=== PATIENT | male | born 1950 | race Caucasian/White ===

== ENCOUNTER 2018-02-06 11:36 | Inpatient (IN) | payer OTHER ==
[~2018-02-06] VITALS: Ht 180.3 cm; Wt 84.9 kg
[2018-02-06 11:58] VITALS: BP 96/53
[2018-02-06] MEDS ORDERED: METF500T5 PO (12:31)
[2018-02-06] MEDS ORDERED: AMLO10TA4 PO (12:32)
[2018-02-06] MEDS ORDERED: ATOR-2 PO (12:33)
[2018-02-06] MEDS ORDERED: LISI1TAB7 PO (12:34)
[2018-02-06] MEDS ORDERED: CLON-275 PO (12:34)
[2018-02-06] MEDS ORDERED: PIOG15TA22 PO (12:38)
[2018-02-06 12:50] LABS: ALBUMIN 1.6 g/dL (3.4-5.0); ANION GAP 9 mmol/L (5-15); CALCIUM 9.3 mg/dL (8.5-10.1); CHLORIDE 98 mmol/L (98-107); CREATININE 1.85 mg/dL (0.7-1.3)
[2018-02-06 12:57] LABS: ALANINE AMINOTRANSFERASE 20 U/L (12-78); ALKALINE PHOSPHATASE 86 U/L (45-117); BILIRUBIN,TOTAL 0.5 mg/dL (0.2-1.0)
[2018-02-06] MEDS ORDERED: PLEASE ENTER ALLERGIES MC SCH (13:00)
[2018-02-06] MEDS ORDERED: ONDANSETRON 2MG/ML, 2ML IVPush PRN (13:00)
[2018-02-06 13:18] LABS: MEAN CORPUSCULAR HEMOGLOBIN 26.8 pg (27.5-34.5); MEAN CORPUSCULAR HGB CONC 32.6 g/dL (33.2-36.2); MEAN CORPUSCULAR VOLUME 82.2 fL (81-97); MEAN PLATELET VOLUME 6.2 fL (7.4-10.4); PLATELET COUNT 665 x10^3/uL (130-400); RED BLOOD COUNT 2.44 x10^6/uL (4.38-5.82)
[2018-02-06] MEDS: NS + 20MEQ KCL 1,000 ML IV SCH ×3 (13:50→23:00)
[2018-02-06 13:52] LABS: BASOPHILS # (AUTO) 0.02 x10^3/uL (0-0.1); BASOPHILS % (AUTO) 0 % (0-1); EOSINOPHILS # (AUTO) 0.01 x10^3/uL (0-0.4); EOSINOPHILS % (AUTO) 0 % (1-7); LYMPHOCYTES # (AUTO) 1.05 x10^3/uL (1-3.4); LYMPHOCYTES % (AUTO) 13 % (22-44); MD MORPH REVIEW ONLY; MONOCYTES # (AUTO) 0.41 x10^3/uL (0.2-0.8); MONOCYTES % (AUTO) 5 % (2-9); NEUTROPHILS # (AUTO) 6.65 x10^3/uL (1.8-6.8); NEUTROPHILS % (AUTO) 82 % (42-75)
[2018-02-06 13:54] LABS: ANISOCYTOSIS 1+; HYPOCHROMIA 1+
[2018-02-06 13:55] LABS: POLYCHROMASIA 1+
[2018-02-06 13:56] LABS: <PLATELET ESTIMATE> INCREASED; <PLT MORPHOLOGY> NORMAL PLT MORPH
[2018-02-06] MEDS ORDERED: hydrALAzine 20 MG/ML, 1ML IVPush PRN (14:00)
[2018-02-06] MEDS ORDERED: ZOLPIDEM 5MG TABLET PO PRN (14:00)
[2018-02-06 14:04] VITALS: BP 92/54
[2018-02-06 14:35] LABS: HEMOGLOBIN A1C 6.8 % (4.2-6.3)
[2018-02-06 14:44] LABS: % IRON SATURATION 13 % (20-55); IRON LEVEL 16 mcg/dL (65-175); TOTAL IRON BINDING CAPACITY 123 mcg/dL (250-450)
[2018-02-06 14:52] LABS: MEAN CORPUSCULAR HEMOGLOBIN 26.2 pg (27.5-34.5); MEAN CORPUSCULAR HGB CONC 32.3 g/dL (33.2-36.2); MEAN CORPUSCULAR VOLUME 80.9 fL (81-97); MEAN PLATELET VOLUME 5.8 fL (7.4-10.4); PLATELET COUNT 566 x10^3/uL (130-400); RED BLOOD COUNT 2.25 x10^6/uL (4.38-5.82); RED CELL DISTRIBUTION WIDTH 18.6 % (9.4-14.8)
[2018-02-06 14:53] LABS: HEMOGRAM NOTE RECHECKED
[2018-02-06 15:00] LABS: ANISOCYTOSIS 1+; BASOPHILS # (AUTO) 0.02 x10^3/uL (0-0.1); BASOPHILS % (AUTO) 0 % (0-1); EOSINOPHILS # (AUTO) 0.02 x10^3/uL (0-0.4); EOSINOPHILS % (AUTO) 0 % (1-7); LYMPHOCYTES # (AUTO) 0.82 x10^3/uL (1-3.4); LYMPHOCYTES % (AUTO) 13 % (22-44); MD MORPH REVIEW ONLY; MONOCYTES # (AUTO) 0.39 x10^3/uL (0.2-0.8); MONOCYTES % (AUTO) 6 % (2-9); NEUTROPHILS # (AUTO) 5.17 x10^3/uL (1.8-6.8); NEUTROPHILS % (AUTO) 81 % (42-75)
[2018-02-06 15:01] LABS: <PLATELET ESTIMATE> INCREASED; <PLT MORPHOLOGY> NORMAL PLT MORPH; HYPOCHROMIA 1+; POLYCHROMASIA 1+
[2018-02-06] MEDS: INSULIN LISPRO 100 UNITS/ML, PEN SQ-INSULIN SCH ×2 (16:00→21:00)
[2018-02-06 18:51] VITALS: BP 103/55
[2018-02-07] VITALS (8 sets, daily range): BP systolic 102–143; BP diastolic 50–73
[2018-02-07] MEDS: NS + 20MEQ KCL 1,000 ML IV SCH ×4 (01:06→18:01)
[2018-02-07 05:09] LABS: CALCIUM 8.5 mg/dL (8.5-10.1)
[2018-02-07 05:13] LABS: MICROSCOPIC AUTO
[2018-02-07 05:15] LABS: ALANINE AMINOTRANSFERASE 16 U/L (12-78); ALBUMIN 1.5 g/dL (3.4-5.0); ANION GAP 7 mmol/L (5-15); CALCIUM 7.9 mg/dL (8.5-10.1); CHLORIDE 102 mmol/L (98-107)
[2018-02-07 05:25] LABS: ALKALINE PHOSPHATASE 75 U/L (45-117); BILIRUBIN,TOTAL 0.6 mg/dL (0.2-1.0); TOTAL PROTEIN 6.2 g/dL (6.4-8.2)
[2018-02-07 06:56] LABS: MEAN CORPUSCULAR HEMOGLOBIN 26.3 pg (27.5-34.5); MEAN CORPUSCULAR HGB CONC 32.3 g/dL (33.2-36.2); MEAN CORPUSCULAR VOLUME 81.6 fL (81-97); MEAN PLATELET VOLUME 5.8 fL (7.4-10.4); PLATELET COUNT 632 x10^3/uL (130-400); RED BLOOD COUNT 2.53 x10^6/uL (4.38-5.82); RED CELL DISTRIBUTION WIDTH 19.1 % (9.4-14.8)
[2018-02-07] MEDS: INSULIN LISPRO 100 UNITS/ML, PEN SQ-INSULIN SCH ×4 (07:00→22:22)
[2018-02-07 07:53] LABS: MD YES
[2018-02-07 07:54] LABS: <PLATELET ESTIMATE> INCREASED; <PLT MORPHOLOGY> NORMAL PLT MORPH; ANISOCYTOSIS 1+; LYMPH#(MANUAL) 1.42 x10^3/uL (1-3.4); LYMPHS% (MANUAL) 18 % (22-44); MONOS#(MANUAL) 0.16 x10^3/uL (0.3-2.7); MONOS% (MANUAL) 2 % (2-9); ROULEAUX 1+; SEG#(MANUAL) 6.32 x10^3/uL (1.8-6.8); SEGS% (MANUAL) 80 % (42-75)
[2018-02-07 21:58] LABS: MEAN CORPUSCULAR HEMOGLOBIN 27.2 pg (27.5-34.5); MEAN CORPUSCULAR HGB CONC 32.9 g/dL (33.2-36.2); MEAN CORPUSCULAR VOLUME 82.8 fL (81-97); MEAN PLATELET VOLUME 5.9 fL (7.4-10.4); PLATELET COUNT 514 x10^3/uL (130-400); RED BLOOD COUNT 2.35 x10^6/uL (4.38-5.82); RED CELL DISTRIBUTION WIDTH 18.5 % (9.4-14.8)
[2018-02-07] MEDS ORDERED: DIPHENHYDRAMINE 50 MG/ML, 1ML IVPush PRN (22:00)
[2018-02-07 22:50] LABS: BASOPHILS # (AUTO) 0.02 x10^3/uL (0-0.1); BASOPHILS % (AUTO) 0 % (0-1); EOSINOPHILS # (AUTO) 0.01 x10^3/uL (0-0.4); EOSINOPHILS % (AUTO) 0 % (1-7); LYMPHOCYTES # (AUTO) 0.72 x10^3/uL (1-3.4); LYMPHOCYTES % (AUTO) 10 % (22-44); MD MORPH REVIEW ONLY; MONOCYTES # (AUTO) 0.53 x10^3/uL (0.2-0.8); MONOCYTES % (AUTO) 7 % (2-9); NEUTROPHILS # (AUTO) 6.12 x10^3/uL (1.8-6.8); NEUTROPHILS % (AUTO) 83 % (42-75)
[2018-02-07 22:52] LABS: ANISOCYTOSIS 1+; ROULEAUX 1+
[2018-02-07 22:53] LABS: <PLATELET ESTIMATE> INCREASED; <PLT MORPHOLOGY> NORMAL PLT MORPH
[2018-02-08] VITALS (14 sets, daily range): BP systolic 104–134; BP diastolic 49–72
[2018-02-08] MEDS: INSULIN LISPRO 100 UNITS/ML, PEN SQ-INSULIN SCH ×4 (08:17→20:29)
[2018-02-08] MEDS: NS + 20MEQ KCL 1,000 ML IV SCH ×2 (09:16→22:50)
[2018-02-08] MEDS ORDERED: DIAZEPAM INTENSOL 5 MG/ML PO PRN (11:30)
[2018-02-08] MEDS ORDERED: DIAZEPAM 5 MG TABLET ONE ×2 (11:48→20:14)
[2018-02-08] MEDS: DIAZEPAM 10 MG TABLET PO PRN (20:16)
[2018-02-09] VITALS (9 sets, daily range): BP systolic 111–145; BP diastolic 56–72
[2018-02-09 04:29] LABS: BASOPHILS # (AUTO) 0.03 x10^3/uL (0-0.1); BASOPHILS % (AUTO) 0 % (0-1); EOSINOPHILS # (AUTO) 0.03 x10^3/uL (0-0.4); EOSINOPHILS % (AUTO) 0 % (1-7); LYMPHOCYTES # (AUTO) 1.22 x10^3/uL (1-3.4); LYMPHOCYTES % (AUTO) 16 % (22-44); MD NO; MEAN CORPUSCULAR HEMOGLOBIN 27.6 pg (27.5-34.5); MEAN CORPUSCULAR HGB CONC 33.2 g/dL (33.2-36.2); MEAN CORPUSCULAR VOLUME 83.2 fL (81-97); MEAN PLATELET VOLUME 5.8 fL (7.4-10.4); MONOCYTES # (AUTO) 0.59 x10^3/uL (0.2-0.8); MONOCYTES % (AUTO) 8 % (2-9); NEUTROPHILS # (AUTO) 5.68 x10^3/uL (1.8-6.8); NEUTROPHILS % (AUTO) 75 % (42-75); PLATELET COUNT 423 x10^3/uL (130-400); RED CELL DISTRIBUTION WIDTH 18.4 % (9.4-14.8)
[2018-02-09 04:37] LABS: ALBUMIN 1.6 g/dL (3.4-5.0); ANION GAP 8 mmol/L (5-15); CALCIUM 8.1 mg/dL (8.5-10.1); CHLORIDE 104 mmol/L (98-107)
[2018-02-09 04:40] LABS: ALANINE AMINOTRANSFERASE 19 U/L (12-78); ALKALINE PHOSPHATASE 95 U/L (45-117); BILIRUBIN,TOTAL 0.9 mg/dL (0.2-1.0); CREATININE 1.24 mg/dL (0.7-1.3); TOTAL PROTEIN 6.5 g/dL (6.4-8.2)
[2018-02-09] MEDS: INSULIN LISPRO 100 UNITS/ML, PEN SQ-INSULIN SCH ×4 (07:00→20:48)
[2018-02-09] MEDS ORDERED: DIPHENHYDRAMINE 25 MG CAPSULE PO ONE (13:00)
[2018-02-09] MEDS ORDERED: ACETAMINOPHEN 325 MG TABLET PO ONE (13:00)
[2018-02-09] MEDS ORDERED: PROMETHAZINE 25 MG/ML, 1ML IM PRN (18:30)
[2018-02-09] MEDS: PANTOPROZOLE 40MG TABLET PO SCH (18:42)
[2018-02-09] MEDS: ALUMINUM/MAG/SIMETHICONE 30 ML UDC PO PRN (18:42)
[2018-02-09] MEDS: NS + 20MEQ KCL 1,000 ML IV SCH (22:49)
[2018-02-10] VITALS (8 sets, daily range): BP systolic 115–148; BP diastolic 58–73
[2018-02-10] MEDS ORDERED: DIAZEPAM 5 MG TABLET ONE (01:35)
[2018-02-10] MEDS: DIAZEPAM 10 MG TABLET PO PRN (01:36)
[2018-02-10] MEDS: ALUMINUM/MAG/SIMETHICONE 30 ML UDC PO PRN (02:32)
[2018-02-10] MEDS: NS + 20MEQ KCL 1,000 ML IV SCH ×2 (03:58→23:26)
[2018-02-10] MEDS: PANTOPROZOLE 40MG TABLET PO SCH ×3 (06:39→17:19)
[2018-02-10] MEDS: INSULIN LISPRO 100 UNITS/ML, PEN SQ-INSULIN SCH ×4 (07:00→23:26)
[2018-02-10] MEDS ORDERED: FLUMAZENIL 0.1 MG/1 ML, 5ML ONE (08:06)
[2018-02-10] MEDS ORDERED: NALOXONE 1 MG/ML, 2ML ONE (08:06)
[2018-02-10] MEDS ORDERED: MIDAZOLAM 1 MG/ML, 5ML ONE (08:06)
[2018-02-10] MEDS ORDERED: FENTANYL PF 100 MCG/2ML ONE (08:06)
[2018-02-10] MEDS ORDERED: LIDOCAINE 2%, 20ML ONE (08:11)
[2018-02-10 14:52] LABS: MEAN CORPUSCULAR HEMOGLOBIN 27.5 pg (27.5-34.5); MEAN CORPUSCULAR VOLUME 83.3 fL (81-97); MEAN PLATELET VOLUME 5.8 fL (7.4-10.4); PLATELET COUNT 365 x10^3/uL (130-400); RED BLOOD COUNT 3.79 x10^6/uL (4.38-5.82); RED CELL DISTRIBUTION WIDTH 18.6 % (9.4-14.8)
[2018-02-10 14:53] LABS: BASOPHILS # (AUTO) 0.01 x10^3/uL (0-0.1); BASOPHILS % (AUTO) 0 % (0-1); EOSINOPHILS # (AUTO) 0.06 x10^3/uL (0-0.4); EOSINOPHILS % (AUTO) 1 % (1-7); LYMPHOCYTES # (AUTO) 0.83 x10^3/uL (1-3.4); LYMPHOCYTES % (AUTO) 11 % (22-44); MD NO; MONOCYTES # (AUTO) 0.56 x10^3/uL (0.2-0.8); MONOCYTES % (AUTO) 8 % (2-9); NEUTROPHILS # (AUTO) 5.79 x10^3/uL (1.8-6.8); NEUTROPHILS % (AUTO) 80 % (42-75)
[2018-02-10] MEDS: ACETAMINOPHEN 325 MG TABLET PO PRN (19:18)
[2018-02-10] MEDS: DIAZEPAM 5 MG TABLET PO PRN (23:14)
[2018-02-11 01:18] VITALS: BP 127/62
[2018-02-11 07:58] VITALS: BP 126/62
[2018-02-11] MEDS: INSULIN LISPRO 100 UNITS/ML, PEN SQ-INSULIN SCH ×4 (08:00→21:09)
[2018-02-11 13:14] VITALS: BP 111/64
[2018-02-11] MEDS: PANTOPROZOLE 40MG TABLET PO SCH (17:08)
[2018-02-11 19:07] VITALS: BP 134/68
[2018-02-11] MEDS: NS + 20MEQ KCL 1,000 ML IV SCH (20:27)
[2018-02-11] MEDS: DIAZEPAM 5 MG TABLET PO PRN (20:59)
[2018-02-11] MEDS: ACETAMINOPHEN 325 MG TABLET PO PRN (21:08)
[2018-02-12 01:48] VITALS: BP 126/62
[2018-02-12 06:41] VITALS: BP 124/70
[2018-02-12] MEDS: INSULIN LISPRO 100 UNITS/ML, PEN SQ-INSULIN SCH ×4 (07:25→20:44)
[2018-02-12] MEDS: PANTOPROZOLE 40MG TABLET PO SCH ×2 (07:26→15:52)
[2018-02-12] MEDS ORDERED: FENTANYL PF 100 MCG/2ML ONE ×2 (08:45→08:46)
[2018-02-12] MEDS ORDERED: NALOXONE 1 MG/ML, 2ML ONE (08:46)
[2018-02-12] MEDS ORDERED: MIDAZOLAM 1 MG/ML, 5ML ONE (08:46)
[2018-02-12] MEDS ORDERED: FLUMAZENIL 0.1 MG/1 ML, 5ML ONE (08:46)
[2018-02-12] MEDS ORDERED: LIDOCAINE-MPF 2% ,5ML ONE (08:49)
[2018-02-12 10:17] VITALS: BP 107/60
[2018-02-12 13:23] VITALS: BP 129/63
[2018-02-12] MEDS ORDERED: MAGNESIUM CITRATE 300ML ORAL SOL ONE (15:44)
[2018-02-12] MEDS: MAGNESIUM HYDROXIDE 8%, 30ML UDC PO PRN (15:52)
[2018-02-12] MEDS: NS + 20MEQ KCL 1,000 ML IV SCH (17:35)
[2018-02-12 18:41] VITALS: BP 129/74
[2018-02-12] MEDS: ACETAMINOPHEN 325 MG TABLET PO PRN (18:44)
[2018-02-12] MEDS: DOCUSATE 100 MG CAPSULE PO SCH (20:49)
[2018-02-13 01:04] VITALS: BP 117/68
[2018-02-13] MEDS: DIAZEPAM 5 MG TABLET PO PRN ×2 (02:45→21:02)
[2018-02-13] MEDS ORDERED: GADOBUTROL 7.5 MMOL/7.5 ML VIAL ONE (06:10)
[2018-02-13] MEDS: PANTOPROZOLE 40MG TABLET PO SCH ×2 (06:32→18:31)
[2018-02-13 06:40] VITALS: BP 126/57
[2018-02-13] MEDS: INSULIN LISPRO 100 UNITS/ML, PEN SQ-INSULIN SCH ×4 (07:00→21:03)
[2018-02-13] MEDS: DOCUSATE 100 MG CAPSULE PO SCH ×2 (09:00→21:02)
[2018-02-13 10:35] LABS: OCCULT BLOOD NEGATIVE (NEGATIVE)
[2018-02-13 12:40] VITALS: BP 105/54
[2018-02-13] MEDS ORDERED: IRON SUCROSE COMPLEX 100MG/5ML IV ONE (18:00)
[2018-02-13 19:07] VITALS: BP 136/73
[2018-02-13] MEDS: NS + 20MEQ KCL 1,000 ML IV SCH (21:10)
[2018-02-13] MEDS: OXYcodone IR 5MG TABLET PO PRN (23:14)
[2018-02-14 01:15] VITALS: BP 142/64
[2018-02-14 06:43] VITALS: BP 134/69
[2018-02-14] MEDS: INSULIN LISPRO 100 UNITS/ML, PEN SQ-INSULIN SCH ×4 (07:00→21:04)
[2018-02-14] MEDS: PANTOPROZOLE 40MG TABLET PO SCH ×2 (07:14→18:16)
[2018-02-14 09:13] LABS: BASOPHILS # (AUTO) 0.03 x10^3/uL (0-0.1); BASOPHILS % (AUTO) 1 % (0-1); EOSINOPHILS # (AUTO) 0.05 x10^3/uL (0-0.4); EOSINOPHILS % (AUTO) 1 % (1-7); LYMPHOCYTES # (AUTO) 0.84 x10^3/uL (1-3.4); LYMPHOCYTES % (AUTO) 13 % (22-44); MD NO; MEAN CORPUSCULAR HEMOGLOBIN 26.4 pg (27.5-34.5); MEAN CORPUSCULAR HGB CONC 31.4 g/dL (33.2-36.2); MEAN CORPUSCULAR VOLUME 83.9 fL (81-97); MEAN PLATELET VOLUME 5.7 fL (7.4-10.4); MONOCYTES % (AUTO) 9 % (2-9); NEUTROPHILS # (AUTO) 4.96 x10^3/uL (1.8-6.8); NEUTROPHILS % (AUTO) 77 % (42-75); PLATELET COUNT 351 x10^3/uL (130-400); RED BLOOD COUNT 3.38 x10^6/uL (4.38-5.82)
[2018-02-14 09:23] LABS: ANION GAP 7 mmol/L (5-15); CALCIUM 7.9 mg/dL (8.5-10.1); CHLORIDE 106 mmol/L (98-107); CREATININE 1.29 mg/dL (0.7-1.3)
[2018-02-14 09:24] LABS: ALANINE AMINOTRANSFERASE 18 U/L (12-78); ALBUMIN 1.4 g/dL (3.4-5.0)
[2018-02-14 09:26] LABS: ALKALINE PHOSPHATASE 100 U/L (45-117); BILIRUBIN,TOTAL 0.6 mg/dL (0.2-1.0); TOTAL PROTEIN 6.2 g/dL (6.4-8.2)
[2018-02-14] MEDS: DOCUSATE 100 MG CAPSULE PO SCH ×2 (11:25→21:03)
[2018-02-14 12:12] VITALS: BP 129/56
[2018-02-14 12:37] VITALS: BP 127/57
[2018-02-14] MEDS: NS + 20MEQ KCL 1,000 ML IV SCH (18:16)
[2018-02-14 19:10] VITALS: BP 142/65
[2018-02-14] MEDS ORDERED: CEFTRIAXONE PMX 2GM/50ML 50 ML IV SCH (19:30)
[2018-02-14 20:19] LABS: BASOPHILS # (AUTO) 0.02 x10^3/uL (0-0.1); BASOPHILS % (AUTO) 0 % (0-1); EOSINOPHILS # (AUTO) 0.03 x10^3/uL (0-0.4); EOSINOPHILS % (AUTO) 0 % (1-7); LYMPHOCYTES # (AUTO) 0.55 x10^3/uL (1-3.4); LYMPHOCYTES % (AUTO) 7 % (22-44); MD NO; MEAN CORPUSCULAR HGB CONC 32.5 g/dL (33.2-36.2); MEAN CORPUSCULAR VOLUME 83.2 fL (81-97); MEAN PLATELET VOLUME 6.1 fL (7.4-10.4); MONOCYTES # (AUTO) 0.61 x10^3/uL (0.2-0.8); MONOCYTES % (AUTO) 8 % (2-9); NEUTROPHILS # (AUTO) 6.81 x10^3/uL (1.8-6.8); NEUTROPHILS % (AUTO) 85 % (42-75); PLATELET COUNT 383 x10^3/uL (130-400); RED BLOOD COUNT 3.43 x10^6/uL (4.38-5.82); RED CELL DISTRIBUTION WIDTH 19.1 % (9.4-14.8)
[2018-02-14 20:37] LABS: MICROSCOPIC AUTO
[2018-02-14 20:38] LABS: CULTURE INDICATED? YES
[2018-02-14 20:41] VITALS: BP 143/78
[2018-02-14] MEDS: OXYcodone IR 5MG TABLET PO PRN (21:10)
[2018-02-15 03:09] VITALS: BP 105/60
[2018-02-15] MEDS: PANTOPROZOLE 40MG TABLET PO SCH ×2 (06:05→18:33)
[2018-02-15] MEDS: INSULIN LISPRO 100 UNITS/ML, PEN SQ-INSULIN SCH ×4 (07:00→20:47)
[2018-02-15 07:23] VITALS: BP 116/56
[2018-02-15] MEDS: DOCUSATE 100 MG CAPSULE PO SCH ×2 (10:32→20:47)
[2018-02-15 12:26] VITALS: BP 121/68
[2018-02-15] MEDS: NS + 20MEQ KCL 1,000 ML IV SCH (16:46)
[2018-02-15] MEDS: ACETAMINOPHEN 325 MG TABLET PO PRN (18:33)
[2018-02-15 20:36] VITALS: BP 122/72
[2018-02-15] MEDS: OXYcodone IR 5MG TABLET PO PRN (20:47)
[2018-02-15] MEDS: CEFTRIAXONE 2 GM in SODIUM CHLORIDE 0.9% 50 ML IV SCH (21:45)
[2018-02-16 02:50] VITALS: BP 121/58
[2018-02-16] MEDS: PANTOPROZOLE 40MG TABLET PO SCH ×2 (05:42→16:47)
[2018-02-16 06:58] VITALS: BP 120/64
[2018-02-16] MEDS: INSULIN LISPRO 100 UNITS/ML, PEN SQ-INSULIN SCH ×4 (07:58→20:35)
[2018-02-16] MEDS: DOCUSATE 100 MG CAPSULE PO SCH ×2 (08:04→20:35)
[2018-02-16 12:21] VITALS: BP 121/51
[2018-02-16] MEDS: FUROSEMIDE 40 MG/4 ML IV SCH (16:47)
[2018-02-16 19:19] VITALS: BP 123/61
[2018-02-16] MEDS: CEFTRIAXONE 2 GM in SODIUM CHLORIDE 0.9% 50 ML IV SCH (22:11)
[2018-02-16] MEDS: OXYcodone IR 5MG TABLET PO PRN (22:11)
[2018-02-17 01:14] VITALS: BP 139/64
[2018-02-17] MEDS: PANTOPROZOLE 40MG TABLET PO SCH ×2 (05:07→17:17)
[2018-02-17 05:47] LABS: CHLORIDE 103 mmol/L (98-107)
[2018-02-17 05:49] LABS: BASOPHILS # (AUTO) 0.05 x10^3/uL (0-0.1); BASOPHILS % (AUTO) 1 % (0-1); EOSINOPHILS # (AUTO) 0.04 x10^3/uL (0-0.4); EOSINOPHILS % (AUTO) 1 % (1-7); LYMPHOCYTES # (AUTO) 1.09 x10^3/uL (1-3.4); LYMPHOCYTES % (AUTO) 15 % (22-44); MD NO; MEAN CORPUSCULAR HEMOGLOBIN 27.1 pg (27.5-34.5); MEAN CORPUSCULAR HGB CONC 32.2 g/dL (33.2-36.2); MEAN CORPUSCULAR VOLUME 84.4 fL (81-97); MEAN PLATELET VOLUME 6.3 fL (7.4-10.4); MONOCYTES # (AUTO) 0.74 x10^3/uL (0.2-0.8); MONOCYTES % (AUTO) 10 % (2-9); NEUTROPHILS # (AUTO) 5.32 x10^3/uL (1.8-6.8); NEUTROPHILS % (AUTO) 73 % (42-75); PLATELET COUNT 452 x10^3/uL (130-400); RED BLOOD COUNT 2.95 x10^6/uL (4.38-5.82); RED CELL DISTRIBUTION WIDTH 18.7 % (9.4-14.8)
[2018-02-17 05:58] LABS: ALANINE AMINOTRANSFERASE 35 U/L (12-78); ALBUMIN 1.3 g/dL (3.4-5.0); ALKALINE PHOSPHATASE 115 U/L (45-117); ANION GAP 9 mmol/L (5-15); BILIRUBIN,TOTAL 0.4 mg/dL (0.2-1.0); CALCIUM 8.6 mg/dL (8.5-10.1); CREATININE 1.21 mg/dL (0.7-1.3); TOTAL PROTEIN 6.1 g/dL (6.4-8.2)
[2018-02-17] MEDS: INSULIN LISPRO 100 UNITS/ML, PEN SQ-INSULIN SCH ×4 (08:19→21:53)
[2018-02-17] MEDS: DOCUSATE 100 MG CAPSULE PO SCH ×2 (10:00→20:51)
[2018-02-17] MEDS: FUROSEMIDE 40 MG/4 ML IV SCH ×2 (10:00→17:34)
[2018-02-17 12:18] VITALS: BP 129/56
[2018-02-17 18:55] VITALS: BP 155/61
[2018-02-17] MEDS: MAGNESIUM HYDROXIDE 8%, 30ML UDC PO PRN (20:51)
[2018-02-17] MEDS: CEFTRIAXONE PMX 2GM/50ML 50 ML IV SCH (21:49)
[2018-02-18 01:07] VITALS: BP 123/71
[2018-02-18] MEDS ORDERED: BISACODYL 10 MG SUPP PR PRN (01:30)
[2018-02-18] MEDS ORDERED: BISACODYL 10 MG SUPP ONE (01:30)
[2018-02-18] MEDS: PANTOPROZOLE 40MG TABLET PO SCH ×2 (04:56→16:41)
[2018-02-18 06:36] VITALS: BP 120/62
[2018-02-18] MEDS: INSULIN LISPRO 100 UNITS/ML, PEN SQ-INSULIN SCH ×4 (07:08→21:58)
[2018-02-18] MEDS: FUROSEMIDE 40 MG/4 ML IV SCH ×2 (09:22→18:20)
[2018-02-18] MEDS: DOCUSATE 100 MG CAPSULE PO SCH ×2 (09:22→21:55)
[2018-02-18 12:19] VITALS: BP 121/67
[2018-02-18 19:37] VITALS: BP 128/68
[2018-02-18] MEDS: CEFTRIAXONE PMX 2GM/50ML 50 ML IV SCH (21:56)
[2018-02-19 02:00] VITALS: BP 102/57
[2018-02-19] MEDS: PANTOPROZOLE 40MG TABLET PO SCH (05:20)
[2018-02-19 06:48] VITALS: BP 99/51
[2018-02-19] MEDS: INSULIN LISPRO 100 UNITS/ML, PEN SQ-INSULIN SCH ×2 (07:00→11:58)
[2018-02-19] MEDS: DOCUSATE 100 MG CAPSULE PO SCH (07:42)
[2018-02-19] MEDS: FUROSEMIDE 40 MG/4 ML IV SCH (07:42)
[2018-02-19 12:01] VITALS: BP 115/66
== END 2018-02-19 14:04 | disposition home or self-care (01) | DRG 686 ==
LOC: 4NOR 11:45 → 3NW 02-08 17:40
PROVIDERS: ADMIT Internal Medicine; ATTEND Internal Medicine
PROC: 30233N1 Transfusion of Nonautologous Red Blood Cells into Peripheral Vein, Percutaneous Approach (ICD-10-PCS; 2018-02-07)
PROC: 07DR3ZX Extraction of Iliac Bone Marrow, Percutaneous Approach, Diagnostic (ICD-10-PCS; principal; 2018-02-10)
PROC: 0BBK3ZX Excision of Right Lung, Percutaneous Approach, Diagnostic (ICD-10-PCS; 2018-02-12)
DX: C64.1 Malignant neoplasm of right kidney, except renal pelvis (principal); J18.9 Pneumonia, unspecified organism; I82.220 Acute embolism and thrombosis of inferior vena cava; E46 Unspecified protein-calorie malnutrition; C78.00 Secondary malignant neoplasm of unspecified lung; D64.9 Anemia, unspecified; I10 Essential (primary) hypertension; D50.0 Iron deficiency anemia secondary to blood loss (chronic); E11.22 Type 2 diabetes mellitus with diabetic chronic kidney disease; E11.65 Type 2 diabetes mellitus with hyperglycemia; E27.9 Disorder of adrenal gland, unspecified; F41.9 Anxiety disorder, unspecified; I12.9 Hypertensive chronic kidney disease with stage 1 through stage 4 chronic kidney disease, or unspecified chronic kidney disease; N18.9 Chronic kidney disease, unspecified; R31.29 Other microscopic hematuria; Y95 Nosocomial condition; Z87.891 Personal history of nicotine dependence; Z90.5 Acquired absence of kidney; Z68.26 Body mass index [BMI] 26.0-26.9, adult
CPT/HCPCS: 32405; 36415; 38222; 70553; 71045; 71046; 71250; 74181; 77012; 78306; 80053; 81001; 82043; 82272; 82310; 82607; 82962; 83036; 83540; 83550; 83615; 83690; 83735; 83970; 84100; 84443; 85025; 85060; 85097; 86850; 86900; 86923; 87040; 87086; 88184; 88185; 88237; 88264; 88280; 88305; 88311; 88313; 88341; 88342; 88374; 93005; 93970; 99156; 99157; A9585; J0696; J1756; J1940; J2250; J3010; J3480; J3490; A9503; G0461; J1200; J1815; J2310; P9016; Q0163

== ENCOUNTER 2018-03-10 08:59 | Emergency (ER) | payer OTHER ==
[~2018-03-10] VITALS: Ht 175.3 cm; Wt 89.0 kg
[~2018-03-10 08:59] MED LIST: AMLO10TA4 PO; ATOR-2 PO; CLON-275 PO; LISI1TAB7 PO; METF500T5 PO; PIOG15TA22 PO
[2018-03-10 09:02] VITALS: BP 132/74
[2018-03-10] MEDS ORDERED: MORPHINE SULFATE 4 MG/ML, 1ML IVPush PRN (09:30)
[2018-03-10] MEDS ORDERED: ONDANSETRON 2MG/ML, 2ML IVPush ONE (09:30)
[2018-03-10] MEDS ORDERED: SODIUM CHLORIDE FLUSH 10ML SYR IVF ONE (09:30)
[2018-03-10] MEDS ORDERED: SODIUM CHLORIDE 0.9% 1,000ML IV ONE (09:30)
[2018-03-10 09:47] LABS: BASOPHILS # (AUTO) 0.02 x10^3/uL (0-0.1); BASOPHILS % (AUTO) 0 % (0-1); EOSINOPHILS # (AUTO) 0.03 x10^3/uL (0-0.4); EOSINOPHILS % (AUTO) 0 % (1-7); LYMPHOCYTES # (AUTO) 0.79 x10^3/uL (1-3.4); LYMPHOCYTES % (AUTO) 10 % (22-44); MD NO; MEAN CORPUSCULAR HEMOGLOBIN 26.5 pg (27.5-34.5); MEAN CORPUSCULAR HGB CONC 31.3 g/dL (33.2-36.2); MEAN CORPUSCULAR VOLUME 84.6 fL (81-97); MEAN PLATELET VOLUME 6.5 fL (7.4-10.4); MONOCYTES % (AUTO) 7 % (2-9); NEUTROPHILS # (AUTO) 6.38 x10^3/uL (1.8-6.8); NEUTROPHILS % (AUTO) 83 % (42-75); PLATELET COUNT 608 x10^3/uL (130-400); RED BLOOD COUNT 2.98 x10^6/uL (4.38-5.82); RED CELL DISTRIBUTION WIDTH 18.8 % (9.4-14.8)
[2018-03-10 09:59] LABS: ALANINE AMINOTRANSFERASE 25 U/L (12-78); ALBUMIN 1.5 g/dL (3.4-5.0); ANION GAP 8 mmol/L (5-15); CALCIUM 8.4 mg/dL (8.5-10.1); CHLORIDE 101 mmol/L (98-107); CREATININE 1.35 mg/dL (0.7-1.3)
[2018-03-10 10:01] LABS: ALKALINE PHOSPHATASE 107 U/L (45-117); BILIRUBIN,TOTAL 0.4 mg/dL (0.2-1.0)
[2018-03-10] MEDS ORDERED: ONDANSETRON 2MG/ML, 2ML ONE (10:47)
[2018-03-10] MEDS ORDERED: MORPHINE SULFATE 4 MG/ML, 1ML ONE (10:47)
[2018-03-10] MEDS ORDERED: OMNIPAQUE 350 MG/ML, 100ML BOTTLE ONE (10:48)
[2018-03-10 12:02] LABS: INTERNATIONAL NORMALIZED RATIO 1.22 (0.93-1.1); PROTHROMBIN TIME 12.6 Seconds (9.6-11.5)
== END 2018-03-10 12:56 | disposition home or self-care (01) ==
LOC: ED 10:23
DX: D50.0 Iron deficiency anemia secondary to blood loss (chronic) (principal); E88.09 Other disorders of plasma-protein metabolism, not elsewhere classified; R10.9 Unspecified abdominal pain; I10 Essential (primary) hypertension; E11.9 Type 2 diabetes mellitus without complications
CPT/HCPCS: 36415; 74177; 80053; 85025; 85610; 85730; 96374; 96375; 99285; J2405; Q9967

== ENCOUNTER 2018-03-13 16:15 | Inpatient (IN) | payer OTHER ==
[~2018-03-13] VITALS: Ht 175.3 cm; Wt 79.4 kg
[2018-03-13] MEDS ORDERED: SODIUM CHLORIDE FLUSH 10ML SYR IVF ONE (16:30)
[2018-03-13 16:54] LABS: BASOPHILS # (AUTO) 0.02 x10^3/uL (0-0.1); BASOPHILS % (AUTO) 0 % (0-1); EOSINOPHILS # (AUTO) 0.04 x10^3/uL (0-0.4); EOSINOPHILS % (AUTO) 0 % (1-7); LYMPHOCYTES # (AUTO) 0.91 x10^3/uL (1-3.4); LYMPHOCYTES % (AUTO) 8 % (22-44); MD NO; MEAN CORPUSCULAR HEMOGLOBIN 27.3 pg (27.5-34.5); MEAN CORPUSCULAR HGB CONC 32.3 g/dL (33.2-36.2); MEAN CORPUSCULAR VOLUME 84.7 fL (81-97); MEAN PLATELET VOLUME 6.7 fL (7.4-10.4); MONOCYTES # (AUTO) 0.64 x10^3/uL (0.2-0.8); MONOCYTES % (AUTO) 6 % (2-9); NEUTROPHILS # (AUTO) 9.17 x10^3/uL (1.8-6.8); NEUTROPHILS % (AUTO) 85 % (42-75); PLATELET COUNT 605 x10^3/uL (130-400); RED BLOOD COUNT 3.01 x10^6/uL (4.38-5.82); RED CELL DISTRIBUTION WIDTH 18.7 % (9.4-14.8)
[2018-03-13 16:58] LABS: ALANINE AMINOTRANSFERASE 23 U/L (12-78); ALBUMIN 1.6 g/dL (3.4-5.0); ANION GAP 9 mmol/L (5-15); CALCIUM 8.1 mg/dL (8.5-10.1); CHLORIDE 99 mmol/L (98-107)
[2018-03-13 17:03] LABS: ALKALINE PHOSPHATASE 109 U/L (45-117); BILIRUBIN,TOTAL 0.4 mg/dL (0.2-1.0); CREATININE 1.47 mg/dL (0.7-1.3); TOTAL PROTEIN 7.1 g/dL (6.4-8.2)
[2018-03-13] MEDS ORDERED: FURO20TA3 PO (17:52)
[2018-03-13] MEDS ORDERED: PAZO200T PO (17:52)
[2018-03-13 18:29] VITALS: BP 149/77
[2018-03-13] MEDS ORDERED: FURO-93 PO (19:19)
[2018-03-13] MEDS ORDERED: [UNRECOGNIZED DRUG - REMARK] PO (19:21)
[2018-03-13] MEDS ORDERED: [UNRECOGNIZED DRUG - REMARK] (19:21)
[2018-03-13] MEDS ORDERED: CEFTRIAXONE 1,000 MG in SODIUM CHLORIDE 0.9% 50 ML IVPB ONE (19:30)
[2018-03-13] MEDS ORDERED: PHARMACY MAY ADJ FOR RENAL FX MC PRN (20:00)
[2018-03-13] MEDS ORDERED: VANCOMYCIN PER PHARMACY MC PRN (20:00)
[2018-03-13 20:25] LABS: MICROSCOPIC AUTO
[2018-03-13] MEDS ORDERED: DEXTROSE 4 GM TAB.CHEW PO PRN (20:30)
[2018-03-13] MEDS ORDERED: PHARMACOKINETIC CONSULTATION MC ONE (20:30)
[2018-03-13] MEDS ORDERED: PHARMACOKINETIC MONITORING MC PRN (20:30)
[2018-03-13] MEDS ORDERED: GLUCAGON 1 MG IM PRN (20:30)
[2018-03-13] MEDS ORDERED: DEXTROSE 50%, 50ML SYRINGE IVPush PRN (20:30)
[2018-03-13 20:43] LABS: CULTURE INDICATED? YES
[2018-03-13] MEDS ORDERED: LACTULOSE 10 GM/15 ML UDC PO PRN (21:00)
[2018-03-13] MEDS ORDERED: HYDROcodone/APAP 5/325 TABLET PO PRN (21:00)
[2018-03-13] MEDS ORDERED: CALCIUM CARBONATE 500 MG TAB.CHEW PO PRN (21:00)
[2018-03-13] MEDS ORDERED: POLYETHYLENE GLYCOL 17 GM PACKET PO PRN (21:00)
[2018-03-13] MEDS ORDERED: ONDANSETRON 2MG/ML, 2ML IVPush PRN (21:00)
[2018-03-13] MEDS: SODIUM CHLORIDE 0.9% 1,000 ML IV SCH (21:07)
[2018-03-13] MEDS: HYDROcodone/APAP 5/325 TABLET PO PRN (21:08)
[2018-03-13] MEDS: CALCIUM CARBONATE 500 MG TAB.CHEW PO PRN (21:08)
[2018-03-13] MEDS: PIPERACILLIN/TAZO/PMX 3.375GM 50 ML IV SCH (21:39)
[2018-03-13] MEDS: ENOXAPARIN 40 MG/0.4 ML SQ SCH (21:39)
[2018-03-13] MEDS: INSULIN LISPRO 100 UNITS/ML, PEN SQ-INSULIN SCH (21:40)
[2018-03-13] MEDS: VANCOMYCIN 1,800 MG in SODIUM CHLORIDE 0.9% 250 ML IV SCH (22:55)
[2018-03-14] VITALS (8 sets, daily range): BP systolic 134–157; BP diastolic 55–76
[2018-03-14] MEDS: HYDROcodone/APAP 5/325 TABLET PO PRN ×3 (02:08→18:39)
[2018-03-14] MEDS: PIPERACILLIN/TAZO/PMX 3.375GM 50 ML IV SCH ×4 (03:37→22:14)
[2018-03-14] MEDS: SODIUM CHLORIDE FLUSH 10ML SYR IVF SCH ×3 (03:38→20:17)
[2018-03-14 05:23] LABS: CHLORIDE 103 mmol/L (98-107)
[2018-03-14 05:26] LABS: MEAN CORPUSCULAR HEMOGLOBIN 28.2 pg (27.5-34.5); MEAN CORPUSCULAR HGB CONC 33.3 g/dL (33.2-36.2); MEAN CORPUSCULAR VOLUME 84.7 fL (81-97); MEAN PLATELET VOLUME 6.6 fL (7.4-10.4); PLATELET COUNT 443 x10^3/uL (130-400); RED BLOOD COUNT 2.52 x10^6/uL (4.38-5.82); RED CELL DISTRIBUTION WIDTH 18.5 % (9.4-14.8)
[2018-03-14 05:29] LABS: ALANINE AMINOTRANSFERASE 18 U/L (12-78); ALBUMIN 1.3 g/dL (3.4-5.0); ALKALINE PHOSPHATASE 81 U/L (45-117); ANION GAP 8 mmol/L (5-15); BILIRUBIN,TOTAL 0.4 mg/dL (0.2-1.0); CALCIUM 7.9 mg/dL (8.5-10.1); CREATININE 1.28 mg/dL (0.7-1.3); TOTAL PROTEIN 5.8 g/dL (6.4-8.2)
[2018-03-14 05:52] LABS: BASOPHILS # (AUTO) 0.02 x10^3/uL (0-0.1); BASOPHILS % (AUTO) 0 % (0-1); EOSINOPHILS # (AUTO) 0.09 x10^3/uL (0-0.4); EOSINOPHILS % (AUTO) 1 % (1-7); LYMPHOCYTES # (AUTO) 0.96 x10^3/uL (1-3.4); LYMPHOCYTES % (AUTO) 11 % (22-44); MD SCAN; MONOCYTES # (AUTO) 0.59 x10^3/uL (0.2-0.8); MONOCYTES % (AUTO) 7 % (2-9); NEUTROPHILS # (AUTO) 6.92 x10^3/uL (1.8-6.8); NEUTROPHILS % (AUTO) 81 % (42-75)
[2018-03-14] MEDS: INSULIN LISPRO 100 UNITS/ML, PEN SQ-INSULIN SCH ×4 (07:00→20:27)
[2018-03-14] MEDS: SENNA/DOCUSATE TABLET PO SCH (08:46)
[2018-03-14] MEDS: SODIUM CHLORIDE 0.9% 1,000 ML IV SCH (08:46)
[2018-03-14] MEDS: CALCIUM CARBONATE 500 MG TAB.CHEW PO PRN (20:17)
[2018-03-14] MEDS: ENOXAPARIN 40 MG/0.4 ML SQ SCH (20:27)
[2018-03-14] MEDS: GUAIFENESIN/DM 200-20MG, 10ML UDC PO PRN (20:28)
[2018-03-14] MEDS: VANCOMYCIN 1,800 MG in SODIUM CHLORIDE 0.9% 250 ML IV SCH (23:31)
[2018-03-15] MEDS: HYDROcodone/APAP 5/325 TABLET PO PRN ×4 (00:23→16:57)
[2018-03-15 02:31] VITALS: BP 154/70
[2018-03-15] MEDS: GUAIFENESIN/DM 200-20MG, 10ML UDC PO PRN ×3 (04:08→19:25)
[2018-03-15] MEDS: PIPERACILLIN/TAZO/PMX 3.375GM 50 ML IV SCH ×4 (04:08→21:14)
[2018-03-15 04:30] LABS: BASOPHILS # (AUTO) 0.06 x10^3/uL (0-0.1); BASOPHILS % (AUTO) 1 % (0-1); EOSINOPHILS # (AUTO) 0.15 x10^3/uL (0-0.4); EOSINOPHILS % (AUTO) 2 % (1-7); LYMPHOCYTES # (AUTO) 1.31 x10^3/uL (1-3.4); LYMPHOCYTES % (AUTO) 15 % (22-44); MD NO; MEAN CORPUSCULAR HEMOGLOBIN 27.3 pg (27.5-34.5); MEAN CORPUSCULAR HGB CONC 32.6 g/dL (33.2-36.2); MEAN CORPUSCULAR VOLUME 83.6 fL (81-97); MEAN PLATELET VOLUME 6.5 fL (7.4-10.4); MONOCYTES # (AUTO) 0.53 x10^3/uL (0.2-0.8); MONOCYTES % (AUTO) 6 % (2-9); NEUTROPHILS # (AUTO) 6.82 x10^3/uL (1.8-6.8); NEUTROPHILS % (AUTO) 77 % (42-75); PLATELET COUNT 506 x10^3/uL (130-400); RED CELL DISTRIBUTION WIDTH 18.6 % (9.4-14.8)
[2018-03-15 04:37] LABS: ALBUMIN 1.3 g/dL (3.4-5.0); ANION GAP 8 mmol/L (5-15); CHLORIDE 106 mmol/L (98-107)
[2018-03-15 04:41] LABS: ALANINE AMINOTRANSFERASE 18 U/L (12-78); ALKALINE PHOSPHATASE 79 U/L (45-117); BILIRUBIN,TOTAL 0.6 mg/dL (0.2-1.0); CREATININE 1.31 mg/dL (0.7-1.3); TOTAL PROTEIN 6.1 g/dL (6.4-8.2)
[2018-03-15] MEDS: INSULIN LISPRO 100 UNITS/ML, PEN SQ-INSULIN SCH ×4 (07:00→19:59)
[2018-03-15 08:08] VITALS: BP 152/69
[2018-03-15] MEDS: SENNA/DOCUSATE TABLET PO SCH (09:00)
[2018-03-15] MEDS: SODIUM CHLORIDE FLUSH 10ML SYR IVF SCH ×2 (09:01→19:59)
[2018-03-15] MEDS: FUROSEMIDE 20 MG TABLET PO SCH ×2 (11:50→16:32)
[2018-03-15 13:09] VITALS: BP 145/67
[2018-03-15] MEDS: CALCIUM CARBONATE 500 MG TAB.CHEW PO PRN (19:59)
[2018-03-15] MEDS: ENOXAPARIN 40 MG/0.4 ML SQ SCH (19:59)
[2018-03-15 20:18] VITALS: BP 144/69
[2018-03-15] MEDS: VANCOMYCIN 1,800 MG in SODIUM CHLORIDE 0.9% 250 ML IV SCH (23:15)
[2018-03-16 01:23] VITALS: BP 133/58
[2018-03-16] MEDS: GUAIFENESIN/DM 200-20MG, 10ML UDC PO PRN ×3 (02:25→17:16)
[2018-03-16] MEDS: HYDROcodone/APAP 5/325 TABLET PO PRN ×3 (02:25→17:16)
[2018-03-16] MEDS: PIPERACILLIN/TAZO/PMX 3.375GM 50 ML IV SCH ×4 (03:38→20:37)
[2018-03-16] MEDS: CALCIUM CARBONATE 500 MG TAB.CHEW PO PRN ×4 (04:05→21:25)
[2018-03-16 04:33] LABS: BASOPHILS # (AUTO) 0.07 x10^3/uL (0-0.1); BASOPHILS % (AUTO) 1 % (0-1); EOSINOPHILS % (AUTO) 1 % (1-7); LYMPHOCYTES # (AUTO) 1.13 x10^3/uL (1-3.4); LYMPHOCYTES % (AUTO) 15 % (22-44); MD NO; MEAN CORPUSCULAR HEMOGLOBIN 27.5 pg (27.5-34.5); MEAN CORPUSCULAR HGB CONC 32.6 g/dL (33.2-36.2); MEAN CORPUSCULAR VOLUME 84.5 fL (81-97); MEAN PLATELET VOLUME 6.5 fL (7.4-10.4); MONOCYTES # (AUTO) 0.49 x10^3/uL (0.2-0.8); MONOCYTES % (AUTO) 7 % (2-9); NEUTROPHILS # (AUTO) 5.75 x10^3/uL (1.8-6.8); NEUTROPHILS % (AUTO) 76 % (42-75); PLATELET COUNT 541 x10^3/uL (130-400); RED BLOOD COUNT 2.96 x10^6/uL (4.38-5.82); RED CELL DISTRIBUTION WIDTH 19.3 % (9.4-14.8)
[2018-03-16 04:37] LABS: ANION GAP 9 mmol/L (5-15); CALCIUM 8.5 mg/dL (8.5-10.1); CHLORIDE 103 mmol/L (98-107); CREATININE 1.42 mg/dL (0.7-1.3)
[2018-03-16] MEDS: INSULIN LISPRO 100 UNITS/ML, PEN SQ-INSULIN SCH ×4 (07:00→20:41)
[2018-03-16 07:33] VITALS: BP 136/52
[2018-03-16] MEDS: FUROSEMIDE 20 MG TABLET PO SCH ×2 (08:43→16:36)
[2018-03-16] MEDS: SODIUM CHLORIDE FLUSH 10ML SYR IVF SCH ×2 (08:43→20:38)
[2018-03-16] MEDS: SENNA/DOCUSATE TABLET PO SCH (08:43)
[2018-03-16 12:46] VITALS: BP 145/74
[2018-03-16 19:22] VITALS: BP 158/68
[2018-03-16] MEDS: ENOXAPARIN 40 MG/0.4 ML SQ SCH (20:37)
[2018-03-16] MEDS: VANCOMYCIN 1,800 MG in SODIUM CHLORIDE 0.9% 250 ML IV SCH (23:07)
[2018-03-17 01:09] VITALS: BP 139/76
[2018-03-17] MEDS: HYDROcodone/APAP 5/325 TABLET PO PRN ×3 (01:12→20:19)
[2018-03-17] MEDS: GUAIFENESIN/DM 200-20MG, 10ML UDC PO PRN ×4 (01:12→21:27)
[2018-03-17] MEDS: PIPERACILLIN/TAZO/PMX 3.375GM 50 ML IV SCH ×4 (03:22→21:27)
[2018-03-17] MEDS: INSULIN LISPRO 100 UNITS/ML, PEN SQ-INSULIN SCH ×4 (07:00→20:28)
[2018-03-17 07:07] VITALS: BP 149/60
[2018-03-17] MEDS: SENNA/DOCUSATE TABLET PO SCH (09:00)
[2018-03-17] MEDS: FUROSEMIDE 20 MG TABLET PO SCH ×2 (10:32→16:38)
[2018-03-17] MEDS: SODIUM CHLORIDE FLUSH 10ML SYR IVF SCH ×2 (10:33→20:19)
[2018-03-17 13:00] VITALS: BP 151/62
[2018-03-17] MEDS: CALCIUM CARBONATE 500 MG TAB.CHEW PO PRN ×2 (15:37→20:19)
[2018-03-17 20:16] VITALS: BP 166/76
[2018-03-17] MEDS: ENOXAPARIN 40 MG/0.4 ML SQ SCH (20:25)
[2018-03-18 03:32] VITALS: BP 163/71
[2018-03-18] MEDS: PIPERACILLIN/TAZO/PMX 3.375GM 50 ML IV SCH ×4 (03:34→23:02)
[2018-03-18] MEDS: GUAIFENESIN/DM 200-20MG, 10ML UDC PO PRN ×4 (03:34→21:07)
[2018-03-18] MEDS: INSULIN LISPRO 100 UNITS/ML, PEN SQ-INSULIN SCH ×4 (07:00→20:22)
[2018-03-18 07:15] VITALS: BP 128/62
[2018-03-18] MEDS: SENNA/DOCUSATE TABLET PO SCH (09:00)
[2018-03-18] MEDS: SODIUM CHLORIDE FLUSH 10ML SYR IVF SCH ×2 (09:00→20:22)
[2018-03-18] MEDS: FUROSEMIDE 20 MG TABLET PO SCH ×2 (09:56→18:02)
[2018-03-18] MEDS: CALCIUM CARBONATE 500 MG TAB.CHEW PO PRN ×4 (10:01→19:53)
[2018-03-18 13:07] VITALS: BP 130/55
[2018-03-18] MEDS: HYDROcodone/APAP 5/325 TABLET PO PRN (14:02)
[2018-03-18] MEDS ORDERED: VANCOMYCIN 1,600 MG in SODIUM CHLORIDE 0.9% 250 ML IV SCH (16:00)
[2018-03-18 19:24] VITALS: BP 143/61
[2018-03-18] MEDS: ENOXAPARIN 40 MG/0.4 ML SQ SCH (20:50)
[2018-03-18] MEDS: VANCOMYCIN 1,600 MG in SODIUM CHLORIDE 0.9% 250 ML IV SCH (20:50)
[2018-03-19 00:57] VITALS: BP 153/65
[2018-03-19] MEDS: HYDROcodone/APAP 5/325 TABLET PO PRN ×3 (02:15→21:54)
[2018-03-19] MEDS: GUAIFENESIN/DM 200-20MG, 10ML UDC PO PRN ×3 (03:25→15:57)
[2018-03-19 04:46] LABS: BASOPHILS # (AUTO) 0.05 x10^3/uL (0-0.1); BASOPHILS % (AUTO) 1 % (0-1); EOSINOPHILS # (AUTO) 0.06 x10^3/uL (0-0.4); EOSINOPHILS % (AUTO) 1 % (1-7); LYMPHOCYTES # (AUTO) 1.25 x10^3/uL (1-3.4); LYMPHOCYTES % (AUTO) 16 % (22-44); MD NO; MEAN CORPUSCULAR HEMOGLOBIN 27.8 pg (27.5-34.5); MEAN CORPUSCULAR HGB CONC 32.9 g/dL (33.2-36.2); MEAN CORPUSCULAR VOLUME 84.6 fL (81-97); MEAN PLATELET VOLUME 6.4 fL (7.4-10.4); MONOCYTES # (AUTO) 0.63 x10^3/uL (0.2-0.8); MONOCYTES % (AUTO) 8 % (2-9); NEUTROPHILS # (AUTO) 5.66 x10^3/uL (1.8-6.8); NEUTROPHILS % (AUTO) 74 % (42-75); PLATELET COUNT 522 x10^3/uL (130-400); RED BLOOD COUNT 2.88 x10^6/uL (4.38-5.82)
[2018-03-19 04:59] LABS: ANION GAP 8 mmol/L (5-15); CALCIUM 8.7 mg/dL (8.5-10.1); CHLORIDE 101 mmol/L (98-107)
[2018-03-19 05:06] LABS: ALANINE AMINOTRANSFERASE 18 U/L (12-78); ALBUMIN 1.5 g/dL (3.4-5.0); ALKALINE PHOSPHATASE 76 U/L (45-117); BILIRUBIN,TOTAL 0.6 mg/dL (0.2-1.0); TOTAL PROTEIN 6.8 g/dL (6.4-8.2)
[2018-03-19] MEDS: PIPERACILLIN/TAZO/PMX 3.375GM 50 ML IV SCH ×4 (05:51→23:57)
[2018-03-19] MEDS: INSULIN LISPRO 100 UNITS/ML, PEN SQ-INSULIN SCH ×4 (07:00→20:16)
[2018-03-19 07:45] VITALS: BP 144/64
[2018-03-19] MEDS: SENNA/DOCUSATE TABLET PO SCH (08:43)
[2018-03-19] MEDS: FUROSEMIDE 20 MG TABLET PO SCH ×2 (08:57→15:51)
[2018-03-19] MEDS: SODIUM CHLORIDE FLUSH 10ML SYR IVF SCH ×2 (08:58→20:15)
[2018-03-19 13:15] VITALS: BP 153/86
[2018-03-19] MEDS: ENOXAPARIN 40 MG/0.4 ML SQ SCH (20:16)
[2018-03-19 21:45] VITALS: BP 145/75
[2018-03-20 01:42] VITALS: BP 127/45
[2018-03-20] MEDS: PIPERACILLIN/TAZO/PMX 3.375GM 50 ML IV SCH ×2 (06:41→12:18)
[2018-03-20] MEDS: INSULIN LISPRO 100 UNITS/ML, PEN SQ-INSULIN SCH ×2 (07:00→11:39)
[2018-03-20 07:29] VITALS: BP 136/63
[2018-03-20] MEDS: SENNA/DOCUSATE TABLET PO SCH (08:04)
[2018-03-20] MEDS: FUROSEMIDE 20 MG TABLET PO SCH (08:06)
[2018-03-20] MEDS: VANCOMYCIN 1,600 MG in SODIUM CHLORIDE 0.9% 250 ML IV SCH (09:41)
[2018-03-20] MEDS: SODIUM CHLORIDE FLUSH 10ML SYR IVF SCH (09:42)
[2018-03-20] MEDS: CALCIUM CARBONATE 500 MG TAB.CHEW PO PRN (11:34)
[2018-03-20 12:56] VITALS: BP 156/73
[2018-03-20] MEDS ORDERED: LACT10SO5 PO (13:51)
[2018-03-20] MEDS ORDERED: INSU100I11 SQ-INSULIN (13:51)
[2018-03-20] MEDS: HYDROcodone/APAP 5/325 TABLET PO PRN (14:50)
[2018-03-21] MEDS ORDERED: VANCOMYCIN 1,400 MG in SODIUM CHLORIDE 0.9% 250 ML IV SCH (22:00)
== END 2018-03-20 16:45 | DRG 177 ==
LOC: ED 17:38 → EDIP 17:39 → ED 17:52 → 3NW 18:23
PROVIDERS: ADMIT Internal Medicine; ATTEND Internal Medicine
PROC: 30233N1 Transfusion of Nonautologous Red Blood Cells into Peripheral Vein, Percutaneous Approach (ICD-10-PCS; principal; 2018-03-14)
DX: J15.6 Pneumonia due to other Gram-negative bacteria (principal); E43 Unspecified severe protein-calorie malnutrition; E87.1 Hypo-osmolality and hyponatremia; C64.9 Malignant neoplasm of unspecified kidney, except renal pelvis; C78.00 Secondary malignant neoplasm of unspecified lung; C79.72 Secondary malignant neoplasm of left adrenal gland; D89.9 Disorder involving the immune mechanism, unspecified; R00.0 Tachycardia, unspecified; R60.0 Localized edema; R79.89 Other specified abnormal findings of blood chemistry; D50.0 Iron deficiency anemia secondary to blood loss (chronic); E11.22 Type 2 diabetes mellitus with diabetic chronic kidney disease; N18.3 Chronic kidney disease, stage 3 (moderate); I12.9 Hypertensive chronic kidney disease with stage 1 through stage 4 chronic kidney disease, or unspecified chronic kidney disease; E11.65 Type 2 diabetes mellitus with hyperglycemia; E27.8 Other specified disorders of adrenal gland; I89.0 Lymphedema, not elsewhere classified; R09.02 Hypoxemia; R31.29 Other microscopic hematuria; T45.1X5A Adverse effect of antineoplastic and immunosuppressive drugs, initial encounter; Z68.25 Body mass index [BMI] 25.0-25.9, adult; Z85.528 Personal history of other malignant neoplasm of kidney
CPT/HCPCS: 36415; 36430; 71045; 71046; 80048; 80053; 80202; 81001; 82962; 83605; 83735; 83880; 84100; 85025; 86850; 86900; 86923; 87040; 87070; 87086; 87205; 93005; J1650; J2543; J3370; J1815; J7030; J7050; P9016

== ENCOUNTER 2018-05-09 10:33 | Inpatient (IN) | payer OTHER ==
[~2018-05-09] VITALS: Ht 180.3 cm; Wt 77.2 kg
[~2018-05-09 10:33] MED LIST changes: +FURO-93 PO; +FURO20TA3 PO; +INSU100I11 SQ-INSULIN; +LACT10SO5 PO; +METF500T17 PO; -METF500T5 PO; +PAZO200T PO; +[UNRECOGNIZED DRUG - REMARK]; +[UNRECOGNIZED DRUG - REMARK] PO
[2018-05-09] MEDS ORDERED: SODIUM CHLORIDE FLUSH 10ML SYR IVF ONE (11:30)
[2018-05-09 11:43] LABS: MEAN CORPUSCULAR HEMOGLOBIN 29.1 pg (27.5-34.5); MEAN CORPUSCULAR VOLUME 88.2 fL (81-97); MEAN PLATELET VOLUME 7.4 fL (7.4-10.4); PLATELET COUNT 232 x10^3/uL (130-400); RED BLOOD COUNT 3.68 x10^6/uL (4.38-5.82); RED CELL DISTRIBUTION WIDTH 22.3 % (9.4-14.8)
[2018-05-09 11:53] LABS: ALBUMIN 1.9 g/dL (3.4-5.0); ANION GAP 12 mmol/L (5-15); CALCIUM 8.5 mg/dL (8.5-10.1); CHLORIDE 94 mmol/L (98-107)
[2018-05-09 12:03] LABS: BASOPHILS # (AUTO) 0.03 x10^3/uL (0-0.1); BASOPHILS % (AUTO) 1 % (0-1); EOSINOPHILS % (AUTO) 0 % (1-7); LYMPHOCYTES # (AUTO) 0.47 x10^3/uL (1-3.4); LYMPHOCYTES % (AUTO) 12 % (22-44); MD SCAN; MONOCYTES # (AUTO) 0.21 x10^3/uL (0.2-0.8); MONOCYTES % (AUTO) 5 % (2-9); NEUTROPHILS # (AUTO) 3.25 x10^3/uL (1.8-6.8); NEUTROPHILS % (AUTO) 82 % (42-75)
[2018-05-09 12:12] LABS: ALANINE AMINOTRANSFERASE 45 U/L (12-78); ALKALINE PHOSPHATASE 185 U/L (45-117); CREATININE 1.54 mg/dL (0.7-1.3); TOTAL PROTEIN 7.5 g/dL (6.4-8.2)
[2018-05-09] MEDS ORDERED: OMNIPAQUE 350 MG/ML, 100ML BOTTLE ONE (12:56)
[2018-05-09] MEDS ORDERED: FUROSEMIDE 40 MG/4 ML IV ONE (14:00)
[2018-05-09] MEDS ORDERED: ASPIRIN 325 MG TABLET PO ONE (14:00)
[2018-05-09] MEDS ORDERED: FUROSEMIDE 40 MG TABLET ONE (14:14)
[2018-05-09] MEDS ORDERED: HYDROcodone/APAP 5/325 TABLET ONE ×2 (14:14→17:37)
[2018-05-09] MEDS ORDERED: FUROSEMIDE 40 MG/4 ML ONE (14:25)
[2018-05-09] MEDS ORDERED: HYDROcodone/APAP 5/325 TABLET PO ONE ×2 (14:30→17:00)
[2018-05-09] MEDS ORDERED: POTASSIUM CHLORIDE 20 MEQ TAB.ER.PRT ONE (15:18)
[2018-05-09] MEDS ORDERED: POTASSIUM CHLORIDE 20 MEQ TAB.ER.PRT PO ONE (15:30)
[2018-05-09] MEDS ORDERED: NITROGLYCERIN 0.4 MG BOTTLE (25 TABS) SL PRN (16:30)
[2018-05-09] MEDS ORDERED: morphine SULFATE 10 MG/ML, 1ML IVPush PRN (16:30)
[2018-05-09] MEDS ORDERED: ACETAMINOPHEN 325 MG TABLET PO PRN (16:30)
[2018-05-09] MEDS ORDERED: DIGOXIN 0.125 MG TABLET PO ONE ×2 (16:30→22:30)
[2018-05-09] MEDS ORDERED: DIGOXIN PED IVPush PRN (16:30)
[2018-05-09] MEDS ORDERED: ZOLPIDEM 5MG TABLET PO PRN (16:30)
[2018-05-09 20:11] VITALS: BP 149/86
[2018-05-09] MEDS ORDERED: FURO40TA6 PO (20:32)
[2018-05-09] MEDS: INSULIN LISPRO 100 UNITS/ML, PEN SQ-INSULIN SCH (21:30)
[2018-05-09] MEDS: HYDROcodone/APAP 5/325 TABLET PO PRN (21:49)
[2018-05-09] MEDS ORDERED: METOLAZONE 5 MG TABLET ONE ×2 (21:59→22:02)
[2018-05-09] MEDS: METOLAZONE 2.5 MG TABLET PO SCH (22:03)
[2018-05-09] MEDS: ENOXAPARIN 40 MG/0.4 ML SQ SCH (22:05)
[2018-05-09] MEDS: CARVEDILOL 3.125 MG TABLET PO SCH (22:06)
[2018-05-09] MEDS: BUMETANIDE 0.25 MG/ML, 4ML IV SCH (22:06)
[2018-05-09] MEDS ORDERED: DIGOXIN 0.125 MG TABLET ONE (22:08)
[2018-05-10 00:34] VITALS: BP 129/79
[2018-05-10] MEDS: ONDANSETRON ODT 4 MG PO PRN ×2 (02:02→18:06)
[2018-05-10] MEDS: HYDROcodone/APAP 5/325 TABLET PO PRN ×2 (02:07→19:56)
[2018-05-10 05:58] LABS: ANION GAP 12 mmol/L (5-15); CALCIUM 8.8 mg/dL (8.5-10.1); CHLORIDE 97 mmol/L (98-107)
[2018-05-10 06:17] LABS: HEMOGLOBIN A1C 6.8 % (4.2-6.3)
[2018-05-10] MEDS: INSULIN LISPRO 100 UNITS/ML, PEN SQ-INSULIN SCH ×4 (07:00→20:51)
[2018-05-10] MEDS ORDERED: METOLAZONE 5 MG TABLET ONE (08:02)
[2018-05-10] MEDS: CARVEDILOL 3.125 MG TABLET PO SCH (08:06)
[2018-05-10] MEDS: SPIRONOLACTONE 25 MG TABLET PO SCH (08:06)
[2018-05-10] MEDS: METOLAZONE 2.5 MG TABLET PO SCH (08:07)
[2018-05-10] MEDS: BUMETANIDE 0.25 MG/ML, 4ML IV SCH (08:09)
[2018-05-10 08:12] VITALS: BP 144/96
[2018-05-10 15:48] VITALS: BP 145/87
[2018-05-10] MEDS: CARVEDILOL 6.25 MG TABLET PO SCH (16:54)
[2018-05-10] MEDS: CALCIUM CARBONATE 500 MG TAB.CHEW PO PRN (16:54)
[2018-05-10 18:38] VITALS: BP 119/72
[2018-05-10] MEDS: ENOXAPARIN 40 MG/0.4 ML SQ SCH (19:56)
[2018-05-11] MEDS: HYDROcodone/APAP 5/325 TABLET PO PRN ×2 (02:03→20:35)
[2018-05-11 02:53] VITALS: BP 124/74
[2018-05-11 05:26] LABS: ANION GAP 11 mmol/L (5-15); CALCIUM 8.9 mg/dL (8.5-10.1); CHLORIDE 95 mmol/L (98-107)
[2018-05-11] MEDS: CARVEDILOL 6.25 MG TABLET PO SCH ×2 (05:35→17:58)
[2018-05-11 05:36] VITALS: BP 118/57
[2018-05-11 05:38] LABS: ALANINE AMINOTRANSFERASE 841 U/L (12-78); ALKALINE PHOSPHATASE 177 U/L (45-117); CREATININE 2.14 mg/dL (0.7-1.3); TOTAL PROTEIN 7.4 g/dL (6.4-8.2)
[2018-05-11] MEDS: INSULIN LISPRO 100 UNITS/ML, PEN SQ-INSULIN SCH ×4 (07:00→20:35)
[2018-05-11] MEDS ORDERED: METOLAZONE 5 MG TABLET PO SCH (07:30)
[2018-05-11 07:40] VITALS: BP 123/78
[2018-05-11] MEDS: BUMETANIDE 1 MG TABLET PO SCH (07:57)
[2018-05-11] MEDS: SPIRONOLACTONE 25 MG TABLET PO SCH (07:57)
[2018-05-11 13:07] VITALS: BP 127/77
[2018-05-11] MEDS ORDERED: FUROSEMIDE 40 MG/4 ML IV ONE (14:00)
[2018-05-11] MEDS: CALCIUM CARBONATE 500 MG TAB.CHEW PO PRN (14:37)
[2018-05-11 20:06] VITALS: BP 112/65
[2018-05-11] MEDS: ENOXAPARIN 40 MG/0.4 ML SQ SCH (20:34)
[2018-05-12 01:35] VITALS: BP 121/73
[2018-05-12] MEDS: CARVEDILOL 6.25 MG TABLET PO SCH ×2 (05:26→17:30)
[2018-05-12 05:35] LABS: ALBUMIN 1.8 g/dL (3.4-5.0); ANION GAP 8 mmol/L (5-15); CALCIUM 8.6 mg/dL (8.5-10.1); CHLORIDE 98 mmol/L (98-107)
[2018-05-12 05:36] LABS: CREATININE 2.22 mg/dL (0.7-1.3)
[2018-05-12] MEDS: INSULIN LISPRO 100 UNITS/ML, PEN SQ-INSULIN SCH ×4 (07:00→21:52)
[2018-05-12 07:42] VITALS: BP 121/72
[2018-05-12] MEDS: BUMETANIDE 1 MG TABLET PO SCH (08:58)
[2018-05-12] MEDS: SPIRONOLACTONE 25 MG TABLET PO SCH (08:58)
[2018-05-12 14:23] VITALS: BP 117/68
[2018-05-12] MEDS: ONDANSETRON ODT 4 MG PO PRN (17:30)
[2018-05-12 19:34] VITALS: BP 107/65
[2018-05-12] MEDS: ENOXAPARIN 40 MG/0.4 ML SQ SCH (21:53)
[2018-05-13 02:00] VITALS: BP 128/70
[2018-05-13 05:33] LABS: ALANINE AMINOTRANSFERASE 413 U/L (12-78); ALBUMIN 1.9 g/dL (3.4-5.0); ANION GAP 8 mmol/L (5-15); CALCIUM 8.4 mg/dL (8.5-10.1); CHLORIDE 96 mmol/L (98-107); CREATININE 2.35 mg/dL (0.7-1.3)
[2018-05-13 05:35] LABS: ALKALINE PHOSPHATASE 216 U/L (45-117); BILIRUBIN,TOTAL 0.7 mg/dL (0.2-1.0); TOTAL PROTEIN 6.6 g/dL (6.4-8.2)
[2018-05-13 05:55] VITALS: BP 109/64
[2018-05-13] MEDS: CARVEDILOL 6.25 MG TABLET PO SCH ×2 (05:55→18:03)
[2018-05-13] MEDS: INSULIN LISPRO 100 UNITS/ML, PEN SQ-INSULIN SCH ×4 (07:00→20:57)
[2018-05-13 07:55] VITALS: BP 111/69
[2018-05-13] MEDS: BUMETANIDE 1 MG TABLET PO SCH (09:02)
[2018-05-13 14:26] VITALS: BP 114/73
[2018-05-13 18:42] VITALS: BP 116/72
[2018-05-13] MEDS: ENOXAPARIN 40 MG/0.4 ML SQ SCH (20:57)
[2018-05-14 01:12] VITALS: BP 124/71
[2018-05-14 05:12] VITALS: BP 112/65
[2018-05-14] MEDS: CARVEDILOL 6.25 MG TABLET PO SCH ×2 (05:13→17:46)
[2018-05-14 06:51] VITALS: BP 104/62
[2018-05-14] MEDS: BUMETANIDE 1 MG TABLET PO SCH (08:46)
[2018-05-14] MEDS: INSULIN LISPRO 100 UNITS/ML, PEN SQ-INSULIN SCH ×4 (08:46→22:41)
[2018-05-14 11:49] LABS: ANION GAP 8 mmol/L (5-15); CALCIUM 8.5 mg/dL (8.5-10.1); CHLORIDE 95 mmol/L (98-107); CREATININE 2.16 mg/dL (0.7-1.3)
[2018-05-14 14:11] VITALS: BP 115/69
[2018-05-14 18:54] VITALS: BP 109/56
[2018-05-14 22:38] VITALS: BP 116/71
[2018-05-14] MEDS: ENOXAPARIN 40 MG/0.4 ML SQ SCH (22:40)
[2018-05-15] MEDS: HYDROcodone/APAP 5/325 TABLET PO PRN ×2 (00:27→21:27)
[2018-05-15 04:10] VITALS: BP 94/53
[2018-05-15] MEDS: CARVEDILOL 6.25 MG TABLET PO SCH ×2 (04:26→17:17)
[2018-05-15 06:57] VITALS: BP 100/58
[2018-05-15] MEDS: INSULIN LISPRO 100 UNITS/ML, PEN SQ-INSULIN SCH ×4 (07:00→21:26)
[2018-05-15 10:10] VITALS: BP 125/61
[2018-05-15] MEDS: BUMETANIDE 1 MG TABLET PO SCH (10:13)
[2018-05-15 14:05] VITALS: BP 118/56
[2018-05-15 17:11] VITALS: BP 126/68
[2018-05-15 21:24] VITALS: BP 131/55
[2018-05-15] MEDS: ENOXAPARIN 40 MG/0.4 ML SQ SCH (21:26)
[2018-05-16 02:09] VITALS: BP 111/60
[2018-05-16] MEDS: HYDROcodone/APAP 5/325 TABLET PO PRN ×2 (02:46→19:38)
[2018-05-16 04:57] VITALS: BP 113/67
[2018-05-16] MEDS: CARVEDILOL 6.25 MG TABLET PO SCH ×2 (04:59→18:08)
[2018-05-16 05:49] LABS: ALBUMIN 1.9 g/dL (3.4-5.0); ANION GAP 6 mmol/L (5-15); CALCIUM 8.6 mg/dL (8.5-10.1); CHLORIDE 98 mmol/L (98-107)
[2018-05-16 05:53] LABS: ALANINE AMINOTRANSFERASE 182 U/L (12-78); ALKALINE PHOSPHATASE 227 U/L (45-117); BILIRUBIN,TOTAL 0.7 mg/dL (0.2-1.0); CREATININE 1.86 mg/dL (0.7-1.3); TOTAL PROTEIN 7.1 g/dL (6.4-8.2)
[2018-05-16] MEDS: INSULIN LISPRO 100 UNITS/ML, PEN SQ-INSULIN SCH ×4 (07:00→20:44)
[2018-05-16 07:20] VITALS: BP 116/70
[2018-05-16] MEDS: BUMETANIDE 1 MG TABLET PO SCH (09:03)
[2018-05-16 12:59] VITALS: BP 138/74
[2018-05-16] MEDS ORDERED: BUME1TAB21 PO (14:08)
[2018-05-16] MEDS ORDERED: HYDR-3341 PO (14:08)
[2018-05-16] MEDS ORDERED: INSU100I11 SQ-INSULIN (14:08)
[2018-05-16] MEDS ORDERED: CALC200T24 PO (14:08)
[2018-05-16] MEDS ORDERED: ZOLP5TAB PO (14:08)
[2018-05-16] MEDS ORDERED: HYDR-3240 PO (14:08)
[2018-05-16] MEDS ORDERED: CARV6.2512 PO (14:08)
[2018-05-16 19:01] VITALS: BP 123/61
[2018-05-16] MEDS: ENOXAPARIN 40 MG/0.4 ML SQ SCH (20:43)
[2018-05-17] VITALS (7 sets, daily range): BP systolic 99–143; BP diastolic 55–71
[2018-05-17] MEDS: CARVEDILOL 6.25 MG TABLET PO SCH ×2 (05:42→17:03)
[2018-05-17] MEDS: INSULIN LISPRO 100 UNITS/ML, PEN SQ-INSULIN SCH ×4 (08:05→21:00)
[2018-05-17] MEDS: BUMETANIDE 1 MG TABLET PO SCH (09:41)
[2018-05-17] MEDS: HYDROcodone/APAP 5/325 TABLET PO PRN (19:20)
[2018-05-17] MEDS: ENOXAPARIN 40 MG/0.4 ML SQ SCH (20:44)
[2018-05-18] MEDS: HYDROcodone/APAP 5/325 TABLET PO PRN ×3 (00:05→20:21)
[2018-05-18] MEDS: CARVEDILOL 6.25 MG TABLET PO SCH ×2 (05:53→16:41)
[2018-05-18 06:58] VITALS: BP 100/57
[2018-05-18] MEDS: INSULIN LISPRO 100 UNITS/ML, PEN SQ-INSULIN SCH ×4 (07:00→20:14)
[2018-05-18] MEDS: BUMETANIDE 1 MG TABLET PO SCH (08:52)
[2018-05-18 13:04] VITALS: BP 122/64
[2018-05-18 20:01] VITALS: BP 118/61
[2018-05-18] MEDS: ENOXAPARIN 40 MG/0.4 ML SQ SCH (20:13)
[2018-05-19] MEDS: HYDROcodone/APAP 5/325 TABLET PO PRN (02:12)
[2018-05-19 03:49] VITALS: BP 119/64
[2018-05-19] MEDS: CARVEDILOL 6.25 MG TABLET PO SCH (05:29)
[2018-05-19 05:32] LABS: ALANINE AMINOTRANSFERASE 106 U/L (12-78); ALBUMIN 1.8 g/dL (3.4-5.0); ANION GAP 6 mmol/L (5-15); CALCIUM 8.5 mg/dL (8.5-10.1); CHLORIDE 99 mmol/L (98-107); CREATININE 1.66 mg/dL (0.7-1.3)
[2018-05-19 05:35] LABS: ALKALINE PHOSPHATASE 217 U/L (45-117); BILIRUBIN,TOTAL 0.7 mg/dL (0.2-1.0); TOTAL PROTEIN 7.1 g/dL (6.4-8.2)
[2018-05-19] MEDS: INSULIN LISPRO 100 UNITS/ML, PEN SQ-INSULIN SCH ×2 (07:00→11:53)
[2018-05-19 07:39] VITALS: BP 116/66
[2018-05-19] MEDS: BUMETANIDE 1 MG TABLET PO SCH (08:35)
[2018-05-19] MEDS: ONDANSETRON ODT 4 MG PO PRN (10:17)
[2018-05-19 13:26] VITALS: BP 121/63
== END 2018-05-19 16:14 | DRG 682 ==
LOC: ED 14:40 → EDIP 15:39 → 5SO 20:01
PROVIDERS: ADMIT Internal Medicine; ATTEND Internal Medicine
DX: N17.9 Acute kidney failure, unspecified (principal); I82.220 Acute embolism and thrombosis of inferior vena cava; J96.20 Acute and chronic respiratory failure, unspecified whether with hypoxia or hypercapnia; I50.43 Acute on chronic combined systolic (congestive) and diastolic (congestive) heart failure; I13.0 Hypertensive heart and chronic kidney disease with heart failure and stage 1 through stage 4 chronic kidney disease, or unspecified chronic kidney disease; C64.9 Malignant neoplasm of unspecified kidney, except renal pelvis; E87.1 Hypo-osmolality and hyponatremia; I42.7 Cardiomyopathy due to drug and external agent; C78.00 Secondary malignant neoplasm of unspecified lung; N18.4 Chronic kidney disease, stage 4 (severe); D63.8 Anemia in other chronic diseases classified elsewhere; E11.22 Type 2 diabetes mellitus with diabetic chronic kidney disease; E78.5 Hyperlipidemia, unspecified; E86.1 Hypovolemia; G89.29 Other chronic pain; I08.3 Combined rheumatic disorders of mitral, aortic and tricuspid valves; I27.81 Cor pulmonale (chronic); I27.29 Other secondary pulmonary hypertension; J44.9 Chronic obstructive pulmonary disease, unspecified; T45.1X5A Adverse effect of antineoplastic and immunosuppressive drugs, initial encounter; T50.2X5A Adverse effect of carbonic-anhydrase inhibitors, benzothiadiazides and other diuretics, initial encounter; Z82.49 Family history of ischemic heart disease and other diseases of the circulatory system; Z85.528 Personal history of other malignant neoplasm of kidney; Z87.891 Personal history of nicotine dependence
CPT/HCPCS: 36415; 71045; 71275; 80048; 80053; 82040; 82962; 83036; 83880; 84484; 85025; 93005; 93308; 93321; 93325; 96374; 99285; C8929; G0378; J1650; J1940; Q0162; Q9967; J1815

== ENCOUNTER 2018-09-04 08:23 | Outpatient (CLI) | payer MEDICARE, OTHER ==
[~2018-09-04 08:23] MED LIST changes: +BUME1TAB21 PO; +CALC200T24 PO; +CARV6.2512 PO; +FURO40TA6 PO; +HYDR-3240 PO; +HYDR-3341 PO; +ZOLP5TAB PO
== END 2018-09-04 23:59 | disposition home or self-care (01) ==
LOC: PETCFH 08:23
PROVIDERS: ATTEND Internal Medicine Hematology & Oncology
DX: C64.9 Malignant neoplasm of unspecified kidney, except renal pelvis (principal); D09.0 Carcinoma in situ of bladder; I25.10 Atherosclerotic heart disease of native coronary artery without angina pectoris; N62 Hypertrophy of breast; G95.29 Other cord compression
CPT/HCPCS: 78815; A9552

== ENCOUNTER → 2018-12-31 | Outpatient (CLI) | payer MEDICARE | END | disposition home or self-care (01) | LOC: PETCFH 08:48 | PROVIDERS: ATTEND Internal Medicine Hematology & Oncology | DX: C78.7 Secondary malignant neoplasm of liver and intrahepatic bile duct (principal); C64.9 Malignant neoplasm of unspecified kidney, except renal pelvis; D09.0 Carcinoma in situ of bladder; N28.89 Other specified disorders of kidney and ureter; L72.3 Sebaceous cyst | CPT/HCPCS: 78815; A9552 ==

== ENCOUNTER → 2019-01-14 | Outpatient (CLI) | payer MEDICARE, MEDICAID | END | disposition home or self-care (01) | LOC: CVU 06:45 | PROVIDERS: ATTEND Internal Medicine Hematology & Oncology | DX: I08.2 Rheumatic disorders of both aortic and tricuspid valves (principal); I10 Essential (primary) hypertension; E78.5 Hyperlipidemia, unspecified; J44.9 Chronic obstructive pulmonary disease, unspecified; E11.9 Type 2 diabetes mellitus without complications; C64.9 Malignant neoplasm of unspecified kidney, except renal pelvis; D09.0 Carcinoma in situ of bladder | CPT/HCPCS: 0399T; 93306 ==

== ENCOUNTER 2019-02-17 14:54 | Inpatient (IN) | payer MEDICARE, MEDICAID ==
[~2019-02-17] VITALS: Ht 177.8 cm; Wt 88.2 kg
[~2019-02-17 14:54] MED LIST changes: +CARV12.543 PO; +SPIR25TA5 PO
[2019-02-17] MEDS ORDERED: SODIUM CHLORIDE FLUSH 10ML SYR IVF ONE (15:30)
--- NOTE | 2019-02-17 15:40 | NUR ---
pt to ed for left leg pain. hx ca starting in kidney with multiple mets. pt connected to monitors. vss. iv established adn labs drawn. awaiting results. pt to xr at this time.
[2019-02-17 15:44] LABS: BASOPHILS # (AUTO) 0.02 x10^3/uL (0-0.1); BASOPHILS % (AUTO) 0 % (0-1); EOSINOPHILS # (AUTO) 0.06 x10^3/uL (0-0.4); EOSINOPHILS % (AUTO) 1 % (1-7); LYMPHOCYTES # (AUTO) 1.03 x10^3/uL (1-3.4); LYMPHOCYTES % (AUTO) 18 % (22-44); MD NO; MEAN CORPUSCULAR HEMOGLOBIN 27.4 pg (27.5-34.5); MEAN CORPUSCULAR HGB CONC 32.4 g/dL (33.2-36.2); MEAN CORPUSCULAR VOLUME 84.5 fL (81-97); MEAN PLATELET VOLUME 7.2 fL (7.4-10.4); MONOCYTES # (AUTO) 0.19 x10^3/uL (0.2-0.8); MONOCYTES % (AUTO) 3 % (2-9); NEUTROPHILS # (AUTO) 4.43 x10^3/uL (1.8-6.8); NEUTROPHILS % (AUTO) 77 % (42-75); PLATELET COUNT 221 x10^3/uL (130-400); RED BLOOD COUNT 3.33 x10^6/uL (4.38-5.82); RED CELL DISTRIBUTION WIDTH 19.3 % (9.4-14.8)
[2019-02-17 15:55] LABS: ALANINE AMINOTRANSFERASE 14 U/L (12-78); ALBUMIN 1.7 g/dL (3.4-5.0); ANION GAP 7 mmol/L (5-15); CALCIUM 8.9 mg/dL (8.5-10.1); CHLORIDE 95 mmol/L (98-107); CREATININE 2.62 mg/dL (0.7-1.3)
[2019-02-17 16:00] LABS: ALKALINE PHOSPHATASE 221 U/L (45-117); BILIRUBIN,TOTAL 0.6 mg/dL (0.2-1.0); TOTAL PROTEIN 7.9 g/dL (6.4-8.2); TROPONIN I < 0.015 ng/mL (0.000-0.045)
--- NOTE | 2019-02-17 16:02 | NUR ---
pt back from [facility]. [place] at for ekg. pt provided with urinal for ua sample. awaiting ua at this time.
[2019-02-17] MEDS ORDERED: [UNRECOGNIZED DRUG - REMARK] (16:48)
--- NOTE | 2019-02-17 16:50 | NUR ---
pt resting in room. vss. no needs expressed. call light within reach. awaiting ua results.
[2019-02-17 16:55] LABS: MICROSCOPIC INDICATED
[2019-02-17 17:13] LABS: CULTURE INDICATED? YES
[2019-02-17] MEDS ORDERED: SODIUM CHLORIDE FLUSH 10ML SYR IVF PRN (17:30)
--- NOTE | 2019-02-17 17:49 | NUR ---
pt resting in room. vss. no needs expressed. call light within reach. awaiting room assignment.
[2019-02-17] MEDS ORDERED: ONDANSETRON 2MG/ML, 2ML IVPush PRN (19:00)
[2019-02-17] MEDS ORDERED: ONDANSETRON ODT 4 MG PO PRN (19:00)
[2019-02-17] MEDS ORDERED: GABAPENTIN 300 MG CAPSULE PO PRN (19:00)
[2019-02-17] MEDS ORDERED: OXYcodone IR 5MG TABLET PO PRN (19:00)
[2019-02-17] MEDS ORDERED: ZOLPIDEM 5MG TABLET PO PRN (19:00)
--- NOTE | 2019-02-17 19:26 | NUR ---
pt resting in room. vss. no needs expressed. call light within reach. awaiting room assignment.
--- NOTE | 2019-02-17 20:48 | NUR ---
REPORT TO ARSH ALMAGUER. PT READY FOR TRANSPORT.
[2019-02-17] MEDS: CARVEDILOL 12.5 MG TABLET PO SCH (21:16)
[2019-02-17] MEDS: POTASSIUM CHLORIDE 20 MEQ in LACTATED RINGERS 1,000 ML IV SCH (21:17)
[2019-02-17 22:00] VITALS: BP 127/70
[2019-02-17] MEDS: INSULIN LISPRO 100 UNITS/ML, PEN SQ-INSULIN SCH (22:00)
[2019-02-18 02:48] VITALS: BP 110/53
[2019-02-18 04:46] LABS: ALBUMIN 1.6 g/dL (3.4-5.0); ANION GAP 7 mmol/L (5-15); CALCIUM 8.7 mg/dL (8.5-10.1); CHLORIDE 96 mmol/L (98-107)
[2019-02-18 04:49] LABS: CREATININE 2.54 mg/dL (0.7-1.3)
[2019-02-18 04:50] LABS: ALANINE AMINOTRANSFERASE 11 U/L (12-78); ALKALINE PHOSPHATASE 198 U/L (45-117); BILIRUBIN,TOTAL 0.9 mg/dL (0.2-1.0); TOTAL PROTEIN 7.3 g/dL (6.4-8.2)
[2019-02-18 07:17] VITALS: BP 129/68
[2019-02-18] MEDS: INSULIN LISPRO 100 UNITS/ML, PEN SQ-INSULIN SCH ×4 (07:22→19:56)
[2019-02-18] MEDS: ENOXAPARIN 30 MG/0.3 ML SQ SCH (07:23)
[2019-02-18] MEDS: CARVEDILOL 12.5 MG TABLET PO SCH ×2 (07:23→19:55)
[2019-02-18] MEDS: POTASSIUM CHLORIDE 20 MEQ in LACTATED RINGERS 1,000 ML IV SCH (11:07)
[2019-02-18 14:21] VITALS: BP 143/59
[2019-02-18] MEDS: KETOROLAC 30 MG/1 ML IV PRN (16:23)
[2019-02-18 20:56] VITALS: BP 125/66
[2019-02-19] MEDS: POTASSIUM CHLORIDE 20 MEQ in LACTATED RINGERS 1,000 ML IV SCH (00:22)
[2019-02-19 01:55] VITALS: BP 144/63
[2019-02-19] MEDS: KETOROLAC 30 MG/1 ML IV PRN ×3 (03:42→15:22)
[2019-02-19] MEDS: ENOXAPARIN 30 MG/0.3 ML SQ SCH (07:09)
[2019-02-19] MEDS: CARVEDILOL 12.5 MG TABLET PO SCH ×2 (07:09→21:31)
[2019-02-19] MEDS: INSULIN LISPRO 100 UNITS/ML, PEN SQ-INSULIN SCH ×4 (07:13→21:35)
[2019-02-19 08:54] VITALS: BP 103/58
[2019-02-19 13:40] VITALS: BP 133/59
[2019-02-19 20:08] VITALS: BP 147/63
[2019-02-19] MEDS: maalox/diphenh/lido/sucralfate 5 ML PO PRN (21:29)
[2019-02-19] MEDS: HYDROcodone/APAP 5/325 TABLET PO PRN (23:45)
[2019-02-20] VITALS: BP 92/50
[2019-02-20 05:07] LABS: ALANINE AMINOTRANSFERASE 12 U/L (12-78); ALBUMIN 1.4 g/dL (3.4-5.0); ANION GAP 6 mmol/L (5-15); CALCIUM 7.9 mg/dL (8.5-10.1); CHLORIDE 101 mmol/L (98-107); CREATININE 2.55 mg/dL (0.7-1.3)
[2019-02-20 05:09] LABS: ALKALINE PHOSPHATASE 177 U/L (45-117); BILIRUBIN,TOTAL 0.4 mg/dL (0.2-1.0); TOTAL PROTEIN 6.3 g/dL (6.4-8.2)
[2019-02-20 07:44] VITALS: BP 127/62
[2019-02-20] MEDS: CARVEDILOL 12.5 MG TABLET PO SCH ×2 (08:16→20:48)
[2019-02-20] MEDS: ENOXAPARIN 30 MG/0.3 ML SQ SCH (08:17)
[2019-02-20] MEDS: INSULIN LISPRO 100 UNITS/ML, PEN SQ-INSULIN SCH ×4 (08:18→20:48)
[2019-02-20] MEDS: AFINITOR 10 MG PO SCH (08:20)
[2019-02-20] MEDS: maalox/diphenh/lido/sucralfate 5 ML PO PRN (11:19)
[2019-02-20] MEDS: HYDROcodone/APAP 5/325 TABLET PO PRN (14:36)
[2019-02-20 14:45] VITALS: BP 132/52
[2019-02-20] MEDS: methylPREDNISolone SOD SUCC 40 MG/ML IV SCH ×2 (14:49→22:40)
[2019-02-20 18:59] VITALS: BP 120/81
[2019-02-20] MEDS ORDERED: DIPHENHYDRAMINE 12.5MG/5ML, 10ML UDC PO PRN (21:30)
[2019-02-21 02:21] VITALS: BP 125/58
[2019-02-21] MEDS: methylPREDNISolone SOD SUCC 40 MG/ML IV SCH ×3 (06:28→22:02)
[2019-02-21 07:21] VITALS: BP 127/68
[2019-02-21] MEDS: INSULIN LISPRO 100 UNITS/ML, PEN SQ-INSULIN SCH ×5 (07:45→21:30)
[2019-02-21] MEDS: AFINITOR 10 MG PO SCH (09:00)
[2019-02-21] MEDS: ENOXAPARIN 30 MG/0.3 ML SQ SCH (09:15)
[2019-02-21] MEDS: CARVEDILOL 12.5 MG TABLET PO SCH ×2 (09:15→21:31)
[2019-02-21] MEDS: maalox/diphenh/lido/sucralfate 5 ML PO PRN (11:20)
[2019-02-21 13:49] VITALS: BP 127/68
[2019-02-21 19:25] VITALS: BP 120/50
[2019-02-21] MEDS: FUROSEMIDE 20 MG/2 ML IV SCH (19:47)
[2019-02-21 21:20] VITALS: BP 117/58
[2019-02-21] MEDS: INSULIN GLARGINE 100 UNITS/ML, PEN SQ-INSULIN SCH (21:56)
[2019-02-22 01:21] VITALS: BP 121/66
[2019-02-22 05:08] LABS: BASOPHILS # (AUTO) 0.03 x10^3/uL (0-0.1); BASOPHILS % (AUTO) 1 % (0-1); EOSINOPHILS % (AUTO) 0 % (1-7); LYMPHOCYTES # (AUTO) 0.37 x10^3/uL (1-3.4); LYMPHOCYTES % (AUTO) 10 % (22-44); MD NO; MEAN CORPUSCULAR HGB CONC 32.2 g/dL (33.2-36.2); MEAN CORPUSCULAR VOLUME 83.9 fL (81-97); MEAN PLATELET VOLUME 7.6 fL (7.4-10.4); MONOCYTES # (AUTO) 0.07 x10^3/uL (0.2-0.8); MONOCYTES % (AUTO) 2 % (2-9); NEUTROPHILS # (AUTO) 3.23 x10^3/uL (1.8-6.8); NEUTROPHILS % (AUTO) 87 % (42-75); PLATELET COUNT 175 x10^3/uL (130-400); RED BLOOD COUNT 2.83 x10^6/uL (4.38-5.82); RED CELL DISTRIBUTION WIDTH 19.4 % (9.4-14.8)
[2019-02-22 05:12] LABS: ALBUMIN 1.4 g/dL (3.4-5.0); ANION GAP 7 mmol/L (5-15); CALCIUM 8.1 mg/dL (8.5-10.1); CHLORIDE 99 mmol/L (98-107)
[2019-02-22 05:16] LABS: ALANINE AMINOTRANSFERASE 14 U/L (12-78); ALKALINE PHOSPHATASE 165 U/L (45-117); BILIRUBIN,TOTAL 0.3 mg/dL (0.2-1.0); CREATININE 2.38 mg/dL (0.7-1.3); TOTAL PROTEIN 6.5 g/dL (6.4-8.2)
[2019-02-22] MEDS: methylPREDNISolone SOD SUCC 40 MG/ML IV SCH ×3 (06:14→21:26)
[2019-02-22] MEDS: INSULIN LISPRO 100 UNITS/ML, PEN SQ-INSULIN SCH ×4 (07:10→21:24)
[2019-02-22] MEDS: INSULIN GLARGINE 100 UNITS/ML, PEN SQ-INSULIN SCH ×2 (07:11→21:24)
[2019-02-22] MEDS: CARVEDILOL 12.5 MG TABLET PO SCH ×2 (07:11→21:16)
[2019-02-22] MEDS: FUROSEMIDE 20 MG/2 ML IV SCH ×2 (07:11→17:30)
[2019-02-22] MEDS: AFINITOR 10 MG PO SCH (07:15)
[2019-02-22 07:37] VITALS: BP 143/66
[2019-02-22] MEDS: ENOXAPARIN 30 MG/0.3 ML SQ SCH (09:58)
[2019-02-22 13:53] VITALS: BP 128/63
[2019-02-22 18:41] VITALS: BP 137/67
[2019-02-22] MEDS: DIPHENHYDRAMINE 25 MG CAPSULE PO PRN (23:47)
[2019-02-23] VITALS (11 sets, daily range): BP systolic 120–154; BP diastolic 54–78
[2019-02-23 05:12] LABS: ANION GAP 8 mmol/L (5-15); CALCIUM 7.8 mg/dL (8.5-10.1); CHLORIDE 102 mmol/L (98-107); CREATININE 2.17 mg/dL (0.7-1.3); MEAN CORPUSCULAR HEMOGLOBIN 27.4 pg (27.5-34.5); MEAN CORPUSCULAR HGB CONC 32.5 g/dL (33.2-36.2); MEAN CORPUSCULAR VOLUME 84.3 fL (81-97); MEAN PLATELET VOLUME 7.9 fL (7.4-10.4); PLATELET COUNT 192 x10^3/uL (130-400); RED BLOOD COUNT 2.51 x10^6/uL (4.38-5.82); RED CELL DISTRIBUTION WIDTH 19.4 % (9.4-14.8)
[2019-02-23 05:55] LABS: BASOPHILS # (AUTO) 0.01 x10^3/uL (0-0.1); BASOPHILS % (AUTO) 0 % (0-1); EOSINOPHILS % (AUTO) 0 % (1-7); LYMPHOCYTES # (AUTO) 0.35 x10^3/uL (1-3.4); LYMPHOCYTES % (AUTO) 11 % (22-44); MD SCAN; MONOCYTES # (AUTO) 0.14 x10^3/uL (0.2-0.8); MONOCYTES % (AUTO) 4 % (2-9); NEUTROPHILS % (AUTO) 85 % (42-75)
[2019-02-23] MEDS: FUROSEMIDE 20 MG/2 ML IV SCH ×2 (07:22→16:44)
[2019-02-23] MEDS: ENOXAPARIN 40 MG/0.4 ML SQ SCH (07:23)
[2019-02-23] MEDS: AFINITOR 10 MG PO SCH (07:23)
[2019-02-23] MEDS: methylPREDNISolone SOD SUCC 40 MG/ML IV SCH ×2 (07:23→20:59)
[2019-02-23] MEDS: CARVEDILOL 12.5 MG TABLET PO SCH ×2 (07:23→20:59)
[2019-02-23] MEDS: INSULIN LISPRO 100 UNITS/ML, PEN SQ-INSULIN SCH ×4 (07:28→21:06)
[2019-02-23] MEDS: INSULIN GLARGINE 100 UNITS/ML, PEN SQ-INSULIN SCH ×2 (07:29→21:07)
[2019-02-23] MEDS: HYDROcodone/APAP 5/325 TABLET PO PRN ×2 (17:17→20:59)
[2019-02-23] MEDS: DIPHENHYDRAMINE 25 MG CAPSULE PO PRN (23:26)
[2019-02-24 02:22] VITALS: BP 140/48
[2019-02-24 07:51] VITALS: BP 162/66
[2019-02-24] MEDS: FUROSEMIDE 20 MG/2 ML IV SCH ×2 (08:08→15:59)
[2019-02-24] MEDS: methylPREDNISolone SOD SUCC 40 MG/ML IV SCH ×2 (08:08→20:47)
[2019-02-24] MEDS: CARVEDILOL 12.5 MG TABLET PO SCH ×2 (08:08→20:47)
[2019-02-24] MEDS: ENOXAPARIN 40 MG/0.4 ML SQ SCH (08:08)
[2019-02-24] MEDS: INSULIN LISPRO 100 UNITS/ML, PEN SQ-INSULIN SCH ×4 (08:09→20:50)
[2019-02-24] MEDS: INSULIN GLARGINE 100 UNITS/ML, PEN SQ-INSULIN SCH ×2 (08:09→20:51)
[2019-02-24] MEDS: AFINITOR 10 MG PO SCH (08:10)
[2019-02-24 13:09] VITALS: BP 147/57
[2019-02-24 18:37] VITALS: BP 142/64
[2019-02-24] MEDS: DIPHENHYDRAMINE 25 MG CAPSULE PO PRN (20:53)
[2019-02-25 01:53] VITALS: BP 126/56
[2019-02-25 05:41] LABS: CHLORIDE 106 mmol/L (98-107)
[2019-02-25 05:46] LABS: MEAN CORPUSCULAR HEMOGLOBIN 28.4 pg (27.5-34.5); MEAN CORPUSCULAR HGB CONC 32.7 g/dL (33.2-36.2); MEAN CORPUSCULAR VOLUME 87.1 fL (81-97); MEAN PLATELET VOLUME 8.2 fL (7.4-10.4); PLATELET COUNT 190 x10^3/uL (130-400); RED BLOOD COUNT 3.39 x10^6/uL (4.38-5.82); RED CELL DISTRIBUTION WIDTH 19.4 % (9.4-14.8)
[2019-02-25 05:47] LABS: ALANINE AMINOTRANSFERASE 38 U/L (12-78); ALBUMIN 1.5 g/dL (3.4-5.0); ALKALINE PHOSPHATASE 155 U/L (45-117); ANION GAP 8 mmol/L (5-15); BILIRUBIN,TOTAL 0.4 mg/dL (0.2-1.0); CALCIUM 8.1 mg/dL (8.5-10.1); CREATININE 1.82 mg/dL (0.7-1.3); TOTAL PROTEIN 6.3 g/dL (6.4-8.2)
[2019-02-25 06:04] LABS: BASOPHILS # (AUTO) 0.01 x10^3/uL (0-0.1); BASOPHILS % (AUTO) 0 % (0-1); EOSINOPHILS # (AUTO) 0.04 x10^3/uL (0-0.4); EOSINOPHILS % (AUTO) 1 % (1-7); LYMPHOCYTES # (AUTO) 0.55 x10^3/uL (1-3.4); LYMPHOCYTES % (AUTO) 12 % (22-44); MD NO; MONOCYTES # (AUTO) 0.49 x10^3/uL (0.2-0.8); MONOCYTES % (AUTO) 10 % (2-9); NEUTROPHILS # (AUTO) 3.62 x10^3/uL (1.8-6.8); NEUTROPHILS % (AUTO) 77 % (42-75)
[2019-02-25 07:11] VITALS: BP 152/59
[2019-02-25] MEDS: INSULIN LISPRO 100 UNITS/ML, PEN SQ-INSULIN SCH ×4 (07:44→21:25)
[2019-02-25] MEDS: methylPREDNISolone SOD SUCC 40 MG/ML IV SCH ×2 (09:00→20:03)
[2019-02-25] MEDS: CARVEDILOL 12.5 MG TABLET PO SCH ×2 (09:00→20:03)
[2019-02-25] MEDS: AFINITOR 10 MG PO SCH (09:00)
[2019-02-25] MEDS: INSULIN GLARGINE 100 UNITS/ML, PEN SQ-INSULIN SCH ×2 (09:01→21:24)
[2019-02-25] MEDS: FUROSEMIDE 20 MG/2 ML IV SCH ×2 (09:01→16:33)
[2019-02-25] MEDS: ENOXAPARIN 40 MG/0.4 ML SQ SCH (09:01)
[2019-02-25 13:34] VITALS: BP 159/71
[2019-02-25 19:12] VITALS: BP 154/60
[2019-02-25] MEDS: HYDROcodone/APAP 5/325 TABLET PO PRN (20:03)
[2019-02-26 00:35] VITALS: BP 128/71
[2019-02-26] MEDS: INSULIN LISPRO 100 UNITS/ML, PEN SQ-INSULIN SCH ×2 (07:00→11:42)
[2019-02-26 07:09] VITALS: BP 149/63
[2019-02-26] MEDS: FUROSEMIDE 20 MG/2 ML IV SCH (08:12)
[2019-02-26] MEDS: methylPREDNISolone SOD SUCC 40 MG/ML IV SCH (08:12)
[2019-02-26] MEDS: CARVEDILOL 12.5 MG TABLET PO SCH (08:12)
[2019-02-26] MEDS: INSULIN GLARGINE 100 UNITS/ML, PEN SQ-INSULIN SCH (08:13)
[2019-02-26] MEDS: ENOXAPARIN 40 MG/0.4 ML SQ SCH (08:13)
[2019-02-26] MEDS: AFINITOR 10 MG PO SCH (08:21)
[2019-02-26 12:07] VITALS: BP 159/65
== END 2019-02-26 14:50 | disposition home or self-care (01) | DRG 551 ==
LOC: ED 17:20 → EDIP 17:21 → 3NW 20:49 → DCLOUNGE 02-26 14:10
PROVIDERS: ADMIT Internal Medicine; ATTEND Internal Medicine
PROC: 30233N1 Transfusion of Nonautologous Red Blood Cells into Peripheral Vein, Percutaneous Approach (ICD-10-PCS; principal; 2019-02-23)
DX: M51.16 Intervertebral disc disorders with radiculopathy, lumbar region (principal); E43 Unspecified severe protein-calorie malnutrition; I13.0 Hypertensive heart and chronic kidney disease with heart failure and stage 1 through stage 4 chronic kidney disease, or unspecified chronic kidney disease; C64.9 Malignant neoplasm of unspecified kidney, except renal pelvis; E87.1 Hypo-osmolality and hyponatremia; C78.7 Secondary malignant neoplasm of liver and intrahepatic bile duct; I50.32 Chronic diastolic (congestive) heart failure; M48.54XA Collapsed vertebra, not elsewhere classified, thoracic region, initial encounter for fracture; N17.9 Acute kidney failure, unspecified; N18.9 Chronic kidney disease, unspecified; D63.1 Anemia in chronic kidney disease; E11.21 Type 2 diabetes mellitus with diabetic nephropathy; E11.22 Type 2 diabetes mellitus with diabetic chronic kidney disease; E11.65 Type 2 diabetes mellitus with hyperglycemia; J43.9 Emphysema, unspecified; Z60.2 Problems related to living alone; M48.061 Spinal stenosis, lumbar region without neurogenic claudication; R62.7 Adult failure to thrive; T45.1X5A Adverse effect of antineoplastic and immunosuppressive drugs, initial encounter; Y92.89 Other specified places as the place of occurrence of the external cause; Z79.84 Long term (current) use of oral hypoglycemic drugs; Z79.899 Other long term (current) drug therapy; Z68.27 Body mass index [BMI] 27.0-27.9, adult; Z85.528 Personal history of other malignant neoplasm of kidney; Z87.891 Personal history of nicotine dependence; Z98.1 Arthrodesis status
CPT/HCPCS: 36415; 71045; 72148; 72190; 72195; 78306; 80048; 80053; 81001; 82962; 83735; 84100; 84484; 85025; 86850; 86900; 86923; 87086; 93005; 93922; 93925; G0378; J1650; J1885; J3480; A9503; C9898; J1815; J1940; J2920; J7120; P9016; Q0163

== ENCOUNTER 2019-03-06 15:24 | Emergency (ER) | payer MEDICARE, MEDICAID ==
[~2019-03-06] VITALS: Ht 177.8 cm; Wt 80.0 kg
[~2019-03-06 15:24] MED LIST changes: +[UNRECOGNIZED DRUG - REMARK]
--- NOTE | 2019-03-06 15:43 | NUR ---
PT HAD LABS DRAWN TODAY. THE PT WAS THEN CALLED BY HIS PCP DR DOWLING WHO TOLD HIM TO COME TO THE ER TO GET CHECKED OUT. PT DENIES SOB, CP, N/V/D. PT IN GOWN, ON CONT PULSE OX, NIBP.
[2019-03-06 15:52] VITALS: BP 129/62
[2019-03-06 16:11] LABS: BASOPHILS # (AUTO) 0.08 x10^3/uL (0-0.1); BASOPHILS % (AUTO) 1 % (0-1); EOSINOPHILS # (AUTO) 0.01 x10^3/uL (0-0.4); EOSINOPHILS % (AUTO) 0 % (1-7); LYMPHOCYTES # (AUTO) 0.78 x10^3/uL (1-3.4); LYMPHOCYTES % (AUTO) 8 % (22-44); MD NO; MEAN CORPUSCULAR HEMOGLOBIN 27.1 pg (27.5-34.5); MEAN CORPUSCULAR HGB CONC 31.9 g/dL (33.2-36.2); MEAN PLATELET VOLUME 7.8 fL (7.4-10.4); MONOCYTES # (AUTO) 0.37 x10^3/uL (0.2-0.8); MONOCYTES % (AUTO) 4 % (2-9); NEUTROPHILS # (AUTO) 8.11 x10^3/uL (1.8-6.8); NEUTROPHILS % (AUTO) 87 % (42-75); PLATELET COUNT 186 x10^3/uL (130-400); RED BLOOD COUNT 3.54 x10^6/uL (4.38-5.82); RED CELL DISTRIBUTION WIDTH 20.4 % (9.4-14.8)
[2019-03-06 16:15] LABS: ALANINE AMINOTRANSFERASE 17 U/L (12-78); ALBUMIN 1.9 g/dL (3.4-5.0); ANION GAP 12 mmol/L (5-15); CHLORIDE 90 mmol/L (98-107); CREATININE 2.43 mg/dL (0.7-1.3)
[2019-03-06 16:17] LABS: ALKALINE PHOSPHATASE 225 U/L (45-117); BILIRUBIN,TOTAL 0.9 mg/dL (0.2-1.0); TOTAL PROTEIN 7.3 g/dL (6.4-8.2)
--- NOTE | 2019-03-06 17:22 | NUR ---
FIRST CONTACT WITH PT; Patient/Caregiver given discharge instructions and they have confirmed that they understand the instructions. Patient ambulatory with steady gait TO WHEELCHAIR. PT TAKEN TO D/C DESK IN WHEELCHAIR. PT LEFT WITH ALL PERSONAL BELONGINGS.
--- NOTE | 2019-03-06 17:23 | NUR ---
PT STATES "I HAVE A APPT WITH DR. DOWLING SATURDAY AND [facility] SATURDAY. I WILL KEEP THEM BOTH." PT REEDUCATED TO KEEP THOSE APPTS THAT ARE SCHEDULED.
== END 2019-03-06 17:24 | disposition home or self-care (01) ==
LOC: ED 16:34
DX: I13.0 Hypertensive heart and chronic kidney disease with heart failure and stage 1 through stage 4 chronic kidney disease, or unspecified chronic kidney disease (principal); N18.9 Chronic kidney disease, unspecified; I50.9 Heart failure, unspecified; C80.1 Malignant (primary) neoplasm, unspecified; D63.0 Anemia in neoplastic disease; Z87.891 Personal history of nicotine dependence
CPT/HCPCS: 36415; 80053; 85025; 99283

== ENCOUNTER 2019-03-12 12:34 | Inpatient (IN) | payer MEDICARE, MEDICAID ==
[~2019-03-12] VITALS: Ht 175.3 cm; Wt 97.7 kg
[2019-03-19 12:55] VITALS: BP 101/54
== END 2019-03-19 19:14 | DRG 435 ==
LOC: ED 14:16 → EDIP 14:17 → ED 14:21 → 3NW 17:05
PROVIDERS: ADMIT Internal Medicine; ATTEND Internal Medicine
DX: C78.7 Secondary malignant neoplasm of liver and intrahepatic bile duct (principal); E43 Unspecified severe protein-calorie malnutrition; C64.9 Malignant neoplasm of unspecified kidney, except renal pelvis; E46 Unspecified protein-calorie malnutrition; I13.0 Hypertensive heart and chronic kidney disease with heart failure and stage 1 through stage 4 chronic kidney disease, or unspecified chronic kidney disease; K72.90 Hepatic failure, unspecified without coma; E87.6 Hypokalemia; D75.9 Disease of blood and blood-forming organs, unspecified; E11.22 Type 2 diabetes mellitus with diabetic chronic kidney disease; I50.9 Heart failure, unspecified; N18.9 Chronic kidney disease, unspecified; R62.7 Adult failure to thrive; Z79.899 Other long term (current) drug therapy; Z87.891 Personal history of nicotine dependence; Z68.31 Body mass index [BMI] 31.0-31.9, adult; M54.17 Radiculopathy, lumbosacral region
CPT/HCPCS: 36415; 80053; 81001; 82550; 82962; 85025; 85384; 85610; 85730; 87086; 96374; 96375; G0378; J1885; J2405; J3480; J1815; J2270; J7120; J7512; Q0177

== ENCOUNTER 2019-03-27 11:28 | Emergency (ER) | payer MEDICAID, MEDICARE ==
[~2019-03-27] VITALS: Ht 170.2 cm; Wt 84.0 kg
[2019-03-27 12:27] VITALS: BP 134/66
== END 2019-03-27 15:16 ==
LOC: ED 13:11
DX: D63.0 Anemia in neoplastic disease (principal); E11.9 Type 2 diabetes mellitus without complications; C64.9 Malignant neoplasm of unspecified kidney, except renal pelvis; I50.9 Heart failure, unspecified; I11.0 Hypertensive heart disease with heart failure
CPT/HCPCS: 36415; 80048; 82040; 85025; 86850; 86900; 99283

== ENCOUNTER 2019-04-02 16:09 | Emergency (ER) | payer MEDICARE ==
[~2019-04-02] VITALS: Ht 175.3 cm; Wt 75.2 kg
[2019-04-02 23:43] VITALS: BP 125/55
== END 2019-04-02 23:55 | disposition home or self-care (01) ==
LOC: ED 20:24
DX: C80.1 Malignant (primary) neoplasm, unspecified (principal); D63.0 Anemia in neoplastic disease; I11.0 Hypertensive heart disease with heart failure; I50.9 Heart failure, unspecified; E11.9 Type 2 diabetes mellitus without complications; Z90.89 Acquired absence of other organs; Z87.891 Personal history of nicotine dependence
CPT/HCPCS: 36415; 36430; 80048; 82040; 85025; 85610; 85730; 86850; 86900; 86923; 99285; P9016

== ENCOUNTER 2019-04-05 21:42 | Emergency (ER) | payer MEDICARE ==
[~2019-04-05] VITALS: Ht 177.8 cm; Wt 75.0 kg
[2019-04-06 01:20] VITALS: BP 124/62
== END 2019-04-06 01:23 | disposition home or self-care (01) ==
LOC: ED 22:26
DX: G89.11 Acute pain due to trauma (principal); S90.01XA Contusion of right ankle, initial encounter; M54.2 Cervicalgia; M25.511 Pain in right shoulder; Z85.528 Personal history of other malignant neoplasm of kidney; C78.00 Secondary malignant neoplasm of unspecified lung; D63.8 Anemia in other chronic diseases classified elsewhere; W01.0XXA Fall on same level from slipping, tripping and stumbling without subsequent striking against object, initial encounter; Y93.89 Activity, other specified; Y92.89 Other specified places as the place of occurrence of the external cause; Y99.8 Other external cause status
CPT/HCPCS: 29515; 36415; 72050; 72125; 73502; 73610; 80048; 82040; 82962; 85025; 96374; 99284; J1815